=== PATIENT | male | born 1980 | race Caucasian/White ===

== ENCOUNTER 2018-08-26 08:45 | Emergency (ER) | payer OTHER ==
[~2018-08-26] VITALS: Ht 180.3 cm; Wt 61.2 kg
[2018-08-26] MEDS ORDERED: PENICILLIN V P500 MG PO (09:19)
[2018-08-26] MEDS ORDERED: IBUPROFEN600 MG PO (09:19)
--- OUTSIDE RECORDS SUMMARY | 2018-08-26 11:10 | XMS ---
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 Lucina VISIT COUNT (12 MO.) 2 QUEENIE Lennon TOTAL 2 NOTE: Visits indicate total known visits. ED/UCC VISIT TRACKING (12 MO.) 08/26/2018 09:12 [facility] [place] TYPE: Emergency COMPLAINT: - DENTAL PAIN 08/26/2018 08:46 [facility] [place] TYPE: Emergency COMPLAINT: - DENTAL PAIN/MSE TO CLINIC INPATIENT VISIT TRACKING (12 MO.) No inpatient visits to display in this time frame [id number]
== END 2018-08-26 09:05 | disposition home or self-care (01) ==
LOC: ED 08:45
DX: K08.89 Other specified disorders of teeth and supporting structures (principal)

== ENCOUNTER 2018-08-26 09:12 | Emergency (ER) | payer OTHER ==
[~2018-08-26] VITALS: Ht 180.3 cm; Wt 61.2 kg
--- OUTSIDE RECORDS SUMMARY | 2018-08-26 09:14 | XMS ---
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 Angela has no Care Guidelines for this patient. Lucina VISIT COUNT (12 MO.) [address] [facility] TOTAL 2 NOTE: Visits indicate total known visits. ED/[place] VISIT TRACKING (12 MO.) 08/26/2018 09:12 [facility] [place] TYPE: Emergency COMPLAINT: - DENTAL PAIN 08/26/2018 08:46 [facility] Dasil[facility] [place] TYPE: Emergency COMPLAINT: - DENTAL PAIN INPATIENT VISIT TRACKING (12 MO.) No inpatient visits to display in this time frame [id number]
[2018-08-26] MEDS ORDERED: IBUPROFEN600 MG PO (09:19)
[2018-08-26] MEDS ORDERED: PENICILLIN V P500 MG PO (09:19)
== END 2018-08-26 09:25 | disposition home or self-care (01) ==
LOC: ED 09:12
DX: K02.9 Dental caries, unspecified (principal); F17.200 Nicotine dependence, unspecified, uncomplicated
CPT/HCPCS: 99283

== ENCOUNTER 2019-09-25 15:54 | Emergency (ER) | payer OTHER ==
[~2019-09-25] VITALS: Ht 180.3 cm; Wt 61.2 kg
--- OUTSIDE RECORDS SUMMARY | ~2019-09-25 | XMS | Encounter Summary ---
Demographics + + + | Address | [address] | | | [place] [address] | + + + | Home Phone | | + + + | Preferred Language | Unknown | + + + | Marital Status | | + + + | Temple Affiliation | Unknown | + + + | Race | Unknown | + + + | Ethnic Group | Unknown | + + + Author + + + | Author | [facility] | | | and [place] | + + + | Organization | [facility] | | | and [place] | + + + | Address | Unknown | + + + | Phone | Unavailable | + + + Support + + +---------+ + | Name | Relationship | Address | Phone | + + +---------+ + | Lizbeth Parker | ECON | Unknown | | + + +---------+ + Care Team Providers + +------+ + | Care Recruitment Internship Name | Role | Phone | + +------+ + | Amanda Raman DO | PCP | | + +------+ + Reason for Visit + +--------+ + | Reason | Onset | Comments | | | Date | | + +--------+ + | Screening For | 08/01/ | | | Communicable Disease | 2020 | | + +--------+ + Encounter Details +--------+ + + + + | Date | Type | Department | Care Team | Description | +--------+ + + + + | 08/01/ | Telephone | [facility] | Amanda Raman, | Screening For | | 2019 | | [facility] | DO [address] | Communicable Disease | | | | MED[facility] [address] | [place] [address] | | | | | [address] [place], | [phone] | | | | | [place] [address] | | | | | | [phone] | | | +--------+ + + + + Social History + +-------+ +--------+------+ | Tobacco Use | Types | Packs/Day | Years | Date | | | | | Used | | + +-------+ +--------+------+ | Never Assessed | | | | | + +-------+ +--------+------+ + + + | Sex Assigned at | Date Recorded | | | | + + + | Not on file | | + + + documented as of this encounter Miscellaneous Notes Telephone Encounter - Destiny Perdomo - 08/02/2019 1:38 PM PDTCalled patient to confirm New Patient appt 08/03/[address] Raman. Pt states he feels like he has many of the COVI D 19 symptoms except a fever and has struggled with a sore throat for awhile. Pt was informed to wait in the car upon arrival and call to get checked in, and will be lewis luated in the car before coming inside. Please call patient if needed. Thanks Destiny Perdomo documented in this en counter Plan of Treatment Not on filedocumented as of this encounter Visit Diagnoses Not on filedocumented in this encounter"
--- OUTSIDE RECORDS SUMMARY | ~2019-09-25 | XMS | Encounter Summary ---
Demographics + + + | Address | [address] | | | [place] [address] | + + + | Home Phone | | + + + | Preferred Language | Unknown | + + + | Marital Status | | + + + | Yazidism Affiliation | Unknown | + + + | Race | Unknown | + + + | Ethnic Group | Unknown | + + + Author + + + | Author | [facility] | | | and [place] | + + + | Organization | [facility] | | | and [...] Team Providers + +------+ + | Care Editor Name | Role | Phone | + +------+ + | Amanda Raman DO | PCP | | + +------+ + Reason for Visit + +--------+ + | Reason | Onset | Comments | | | Date | | + +--------+ + | Medication Refill | 09/07/ | | | | 2020 | | + +--------+ + Encounter Details +--------+--------+ + + + | Date | Type | Department | Care Team | Description | +--------+--------+ + + + | 09/07/ | Refill | [facility] | Ace Ramana Levi, | Medication Refill | | 2020 | | [facility] | DO [address] | | | | | MEDICAL CLIN[address] | [place] [address] | | | | | [address] [place], | [phone] | | | | | [place] [address] | | | | | | [phone] | | | +--------+--------+ + + + Social History + +-------+ +--------+------+ | Tobacco Use | Types | Packs/Day | Years | Date | | | | | Used | | + +-------+ +--------+------+ | Current Every Day | | | | | | Smoker | | | | | + +-------+ +--------+------+ + +---+---+---+ | Smokeless Tobacco: | | | | | Never Used | | | | + +---+---+---+ + + | Comments: 5-10 a day | + + + + +---------+ + | Alcohol Use | Drinks/Week | oz/Week | Comments | + + +---------+ + | Not Currently | | | | + + +---------+ + + + + | Sex Assigned at | Date Recorded | | | | + + + | Not on file | | + + + documented as of this encounter Miscellaneous Notes Telephone Encounter - Pari Gongora [facility] - 09/08/2019 1:35 PM PDTFormatting of thi s note might be different from the original. Requested Prescriptions Pending Prescriptions Disp Refills amphetamine-dextroamphetamine (ADDERALL) 5 mg tablet 30 tablet 0 Sig: Take 1 tablet (5 mg total) by mouth Daily Patient was last seen on Recent Visits 08/03/2019 Attention deficit hyperactivity disorder (ADHD), combined type [facility] Amanda Raman DO Office Visit . Outpatient Morphine Equivalent Daily Dose (MEDD) None Lab Results Component Value Date METHAMPHQUAL Negative 08/03/2019 CANNIBSCR Positive (A) 08/03/2019 METHADSCR Negative 08/03/2019 OPIATESCR Negative 08/03/2019 BARBITURATE Negative 08/03/2019 AMPHEQUAL Negative 08/03/2019 OXYCODONEUR Negative 08/03/2019 PROPOX Negative 08/03/2019 JOSESITO Hutton CMA elephone Cassandra Handley 09/08/2019 9:34 AM PDTPt refill request: amphetamine-dextroamphetamine (ADDERALL) 5 mg tablet [facility] ThanksCassandra documented in t his encounter Plan of Treatment Not on filedocumented as of this encounter Visit Diagnoses Not on filedocumented in this encounter"
--- OUTSIDE RECORDS SUMMARY | ~2019-09-25 | XMS | Encounter Summary ---
Demographics + + + | Address | [address] | | | [place] [address] | + + + | Home Phone | | + + + | Preferred Language | Unknown | + + + | Marital Status | | + + + | Pentecostalism Affiliation | Unknown | + + + | Race | Unknown | + + + | Ethnic Group | Unknown | + + + Author + + + | Author | [facility] | | | and [place] | + + + | Organization | [facility] | | [...] Team Providers + +------+ + | Care Metal Sprayer Name | Role | Phone | + +------+ + | Amanda Raman DO | PCP | | + +------+ + Reason for Visit + +--------+ + | Reason | Onset | Comments | | | Date | | + +--------+ + | Lab Results | 08/03/ | | | | 2020 | | + +--------+ + Encounter Details +--------+ + + + + | Date | Type | Department | Care Team | Description | +--------+ + + + + | 08/03/ | Telephone | [facility] | Amanda Raman, | Lab Results | | 2019 | | [facility] | DO [address] | | | | | MEDICAL CLIN[address] | [place] [address] | | | | | [address] [place], | [phone] | | | | | [place] [address] | | | | | | [phone] | | | +--------+ + + + [...] this encounter Miscellaneous Notes Telephone Encounter - Karen Jarrell LPN - 08/04/2019 5:24 PM PDTPatient informed, he s tates he would like to know what his HDL was, no Lipid panel was ordered. Per patient reques t I ordered a lipid for patient to have cholesterol and HDL tested. Vidal Curtisectronically signed by Karen Jarrell LPN at 08/04/2019 5:25 PM P DTTelephone Encounter - Karen Jarrell LPN - 08/04/2019 5:15 PM PDT----- Message from Valencia DO sent at 08/03/2019 3:54 PM PDT ----- UA with no infection but does show some dehydration, continue the cranberry juice and water intake. Drug screen as expected. Labs normal, good renal and liver function. Normal calciu m and protein levels. Tdocumented in this encounter Plan of Treatment Not on filedocumented as of this encounter Results Lipid Panel (08/03/2019 10:48 AM PDT) + + + + + + | Component | Value | Ref Range | Performed | Pathologist | | | | | At | Signature | + + + + + + | Triglycerid | 191 | 30 - 200 mg/dL | [facility] | | | es | | | [facility] | | | | | [facility] | | | | | | [facility] | | | | | | [facility] | | + + + + + + | Cholesterol | 236 (H) | 0 - 200 mg/dL | [facility] | | | | | | [facility] | | | | | | [facility] | | | | | | [facility] | | | | | | [facility] | | + + + + + + | HDL | 33 (L) | >=40 mg/dL | [facility] | | | | | | [facility] | | | | | | [facility] | | | | | | [facility] | | | | | | [facility] | | + + + + + + | Chol/HDL | 7.2 (H) | <=5.0 | [facility] | | | Ratio | | | [facility] | | | | | | [facility] | | | | | | [facility] | | | | | | [facility] | | + + + + + + | LDL, | 165 (H)Comment: LDL | <130 mg/dL | [facility] | | | Calculated | reference range: | | [facility] | | | | < 100 mg/dL | | [facility] | | | | [id number] - 129 mg/dL | | [facility] | | | | Near [id number] - | | MEDICAL | | | | 159 mg/dL | | CENTER LAB | | | | [id number] - 189 | | | | | | mg/dL High | | | | | | > 190 mg/dL Very | | | | | | High | | | | + + + + + + + + | Specimen | + + | Blood | + + + + + + + | Performing | Address | City/State/Zipcode | Phone Number | | Organization | | | | + + + + + | [facility] | [address] | [place], [place] | [phone] | | [facility] | | [address] | | | [facility] | | | | + + + + + documented in this encounter Visit Diagnoses + + | Diagnosis | + + | Hyperlipidemia, unspecified hyperlipidemia type - Primary | + + documented in this encounter"
--- OUTSIDE RECORDS SUMMARY | ~2019-09-25 | XMS | Encounter Summary ---
Demographics + + + | Address | [address] | | | [place] [address] | + + + | Home Phone | | + + + | Preferred Language | Unknown | + + + | Marital Status | | + + + | Sabianism Affiliation | Unknown | + + + | Race | Unknown | + + + | Ethnic Group | Unknown | + + + Author + + + | Author | [facility] | | | and [place] | + + + | Organization | [facility] | | | and [place] | + + + | Address | Unknown | + + + | Phone | Unavailable | + + + Support + + +---------+ + | Name | Relationship | Address | Phone | + + +---------+ + | Lizbeth Crane | ECON | Unknown | | + + +---------+ + Care Team Providers + +------+ + | Care Cane Cutter Name | Role | Phone | + +------+ + | Amanda Raman DO | PCP | | + +------+ + Reason for Visit +--------+ + | Reason | Comments | +--------+ + | Other | tirage | +--------+ + Encounter Details +--------+ + + + + | Date | Type | Department | Care Team | Description | +--------+ + + + + | 09/24/ | Clinical | [facility] | Amanda Raman, | | | 2020 | Support | [facility] | [address] | | | | | MEDICAL CLIN[address] | [place] [address] | | | | | [address] [place], | [phone] | | | | | [place] [address] | | | | | | [phone] | | | +--------+ + + + [...] + + documented as of this encounter Progress Karen Antoine LPN - 09/25/2019 11:20 AM PDTPatient states that he has had a fever, chil ls, cough starting today, SOB, and dizziness. Per Dr. Raman patient was advised to go to the ER to be seen and evaluated. Patient stated that was the first place he wanted to go, but states his friend had made him come to the clinic. Patient was assisted to the car by his friend, and states he will go to the ER. Karen Jarrell LPN documented in this encounter Plan of Treatment + +------+--------+ + + | Name | Type | Priori | Associated Diagnoses | Date/Time | | | | ty | | | + +------+--------+ + + | ED INFORMATION | ALIZA | Routin | | 09/25/2019 10:57 AM | | EXCHANGE | | e | | PDT | + +------+--------+ + + documented as of this encounter Procedures + +--------+ + + + | Procedure Name | Priori | Date/Time | Associated Diagnosis | Comments | | | ty | | | | + +--------+ + + + | ED INFORMATION | Routin | 09/25/2019 | | | | EXCHANGE | e | 10:57 AM | | | | | | PDT | | | + +--------+ + + + +---+--------+ | | | | | Proced | | | ure | | | Note - | | | Claude, | | | Lab In | | | | | | Hlseve | | | n - | | | 09/24/ | | | 2020 | | | 10:58 | | | AM PDT | | | | | | Format | | | ting | | | of | | | this | | | note | | | might | | | be | | | differ | | | ent | | | from | | | the | | | origin | | | al.COL | | | LECTIV | | | E?NOTI | | | FICATI | | | ON?07/ | | | | | | 0 | | | 10:56? | | | CRANE, | | | | | | ARNOLDO? | | | MRN: | | | [id number] | | | [id number] | | | riteri | | | a Met | | | Has | | | Care | | | Guidel | | | inesSe | | | curity | | | and | | | Safety | | | No | | | recent | | | | | | Securi | | | ty | | | Events | | | | | | curren | | | tly on | | | | | | fileED | | | Care | | | Guidel | | | inesTh | | | ere | | | are | | | curren | | | tly no | | | ED | | | Care | | | Guidel | | | katheryn | | | for | | | this | | | patien | | | t. | | | Please | | | check | | | your | | | facili | | | ty's | | | medica | | | l | | | record | | | s | | | system | | | .Care | | | Histor | | | yMedic | | | al/Umer | | | [email or web address] | | | /03/05 | | | 12:00 | | | AM | | | [facility] | | | [facility] | | | al | | | PATIEN | | | T DOES | | | HAVE | | | A PCP- | | | DR | | | KAHLIL | | | L | | | JARREL | | | L AT | | | PENDLE | | | TON | | | PRIMAR | | | Y | | | CLINIC | | | . | | | PLEASE | | | REFER | | | | | | PATIEN | | | T TO | | | DENTIS | | | T DR | | | NIRMAL | | | BUNCH | | | [phone] | | | FOR | | | ANY | | | DENTAL | | | | | | CONCER | | | NS/NAPOLEON | | | N.Flag | | | s | | | [facility] | | | ED | | | Dispar | | | ity | | | Measur | | | e - | | | [facility] | | | has | | | develo | | | ped a | | | flag | | | ([place] | | | n ED | | | Dispar | | | ity | | | Measur | | | e) to | | | help | | | suppor | | | t | | | Medica | | | id | | | member | | | s with | | | | | | mental | | | | | | illnes | | | s. | | | [facility] | | | | | | [facility] | | | | | | Author | | | ity | | | uses | | | claims | | | data | | | with a | | | | | | 36-mon | | | th | | | vito | | | g look | | | back | | | period | | | to | | | identi | | | fy | | | member | | | s who | | | have | | | had | | | two or | | | more | | | diagno | | | ses of | | | | | | mental | | | | | | illnes | | | s | | | (does | | | not | | | need | | | to be | | | primar | | | y) in | | | any | | | settin | | | g | | | (e.g. | | | ED, | | | Inpati | | | ent, | | | primar | | | y | | | care). | | | | | | Flagge | | | d | | | member | | | s are | | | includ | | | ed in | | | the ED | | | | | | Dispar | | | ity | | | Measur | | | e | | | denomi | | | nator | | | popula | | | tion. | | | Flags | | | are | | | update | | | d | | | weekly | | | . / | | | Attrib | | | uted | | | By: | | | [facility] | | | | | | [facility] | | | | | | Author | | | ity | | | (OHA) | | | / | | | Attrib | | | uted | | | On: | | | 02/05/ | | | 2020 | | | E.D. | | | Visit | | | Count | | | (12 | | | mo.)No | | | | | | emerge | | | ncy | | | depart | | | ment | | | visits | | | in | | | the | | | last | | | year. | | | Recent | | | | | | Emerge | | | ncy | | | Depart | | | ment | | | Visit | | | [place] | | | yDate | | | Facili | | | ty | | | City | | | State | | | Type | | | Diagno | | | ses or | | | Chief | | | | | | Compla | | | int | | | Rob | | | 10, | | | 2020 | | | [place] | | | [facility] | | | Urgent | | | Care | | | May | | | 18, | | | 2020 | | | [place] | | | [place] | [place] | [place] | | | Urgent | | | Care | | | | | | Other | | | specif | | | ied | | | behavi | | | oral | | | and | | | emotio | | | nal | | | disord | | | ers | | | with | | | onset | | | | | | Hyperl | | | ipidem | | | ia, | | | unspec | | | ified | | | | | | Tobacc | | | o use | | | | | | Encoun | | | ter | | | for | | | genera | | | l | | | adult | | | medica | | | l | | | examin | | | ation | | | withou | | | t | | | abnor | | | | | | Dysuri | | | a | | | Other | | | long | | | term | | | (curre | | | nt) | | | drug | | | therap | | | y | | | Chroni | | | c | | | pharyn | | | gitis | | | | | | Deviat | | | ed | | | nasal | | | septum | | | | | | Attent | | | ion-de | | | ficit | | | hypera | | | ctivit | | | y | | | disord | | | er, | | | combin | | | ed | | | type | | | Recent | | | | | | Inpati | | | ent | | | Visit | | | [facility] | | | yNo | | | record | | | ed | | | inpati | | | ent | | | visits | | | . Care | | | | | | TeamPr | | | ovider | | | | | | Specia | | | lty | | | Phone | | | Fax | | | Servic | | | e | | | Dates | | | GAXIOLA, | | | ARIES | | | , PA | | | Physic | | | damion | | | Assist | | | ant | | | (541) | | | 383-30 | | | 05 | | | (541) | | | 383-18 | | | 83 | | | Curren | | | t | | | JARREL | | | L, | | | KAHLIL | | | , PA-C | | | | | | Physic | | | damion | | | Assist | | | ant | | | (541) | | | 567-11 | | | 37 | | | (541) | | | 567-23 | | | 36 Cuong | | | 12, | | | 2019 - | | | | | | Curren | | | t | | | REIHER | | | , | | | EFREN | | | , MD | | | Family | | | | | | Medici | | | ne | | | (541) | | | 383-30 | | | 05 | | | Curren | | | t | | | ARIES | | | GAXIOLA | | | Primar | | | y Care | | | (541) | | | | | | 383-30 | | | 05 | | | (541) | | | 383-18 | | | 83 | | | Curren | | | t | | | GAXIOLA, | | | ARIES | | | W | | | Primar | | | y Care | | | | | | (541) | | | 383-18 | | | 83 | | | Curren | | | t | | | Collec | | | tive | | | Portal | | | This | | | patien | | | t has | | | regist | | | ered | | | at the | | | | | | [facility] | | | [facility] | | | | | [facility] | | | al | | | Emerge | | | ncy | | | Depart | | | ment | | | For | | | more | | | inform | | | ation | | | visit: | | | | | | https: | | | //secu | | | re.col | | | lectiv | | | emedic | | | al.com | | | /notif | | | [email or web address] | | | 8de7-0 | | | [email or web address] | | | 36-ab3 | | | d-[email or web address] | | | [id number] | | | 02 | | | PLEASE | | | NOTE: | | | 1. | | | Any | | | care | | | recomm | | | endati | | | ons | | | and | | | other | | | clinic | | | al | | | inform | | | ation | | | are | | | provid | | | ed as | | | guidel | | | katheryn | | | or for | | | | | | histor | | | ical | | | purpos | | | es | | | only, | | | and | | | provid | | | ers | | | should | | | | | | exerci | | | se | | | their | | | own | | | clinic | | | al | | | judgme | | | nt | | | when | | | provid | | | ing | | | care. | | | 2. | | | You | | | may | | | only | | | use | | | this | | | inform | | | ation | | | for | | | purpos | | | es of | | | treatm | | | ent, | | | paymen | | | t or | | | health | | | care | | | operat | | | ions | | | activi | | | ties, | | | and | | | subjec | | | t to | | | the | | | limita | | | tions | | | of | | | applic | | | able | | | Collec | | | tive | | | Polici | | | es. | | | 3. | | | You | | | should | | | | | | consul | | | t | | | direct | | | ly | | | with | | | the | | | organi | | | zation | | | that | | | provid | | | ed a | | | care | | | guidel | | | ine or | | | other | | | | | | clinic | | | al | | | histor | | | y with | | | any | | | questi | | | ons | | | about | | | additi | | | onal | | | inform | | | ation | | | or | | | accura | | | cy or | | | comple | | | teness | | | of | | | inform | | | ation | | | provid | | | ed.? | | | 2020 | | | Collec | | | tive | | | Medica | | | l | | | Techno | | | logies | | | , Inc. | | | - | | | [email or web address] | | | llecti | | | vemedi | | | [email or web address] | | | m | +---+--------+ documented in this encounter Visit Diagnoses Not on filedocumented in this encounter"
--- OUTSIDE RECORDS SUMMARY | ~2019-09-25 | XMS | Encounter Summary ---
Demographics + + + | Address | [address] | | | [place] [address] | + + + | Home Phone | | + + + | Preferred Language | Unknown | + + + | Marital Status | | + + + | Presybeterian Affiliation | Unknown | + + + | Race | Unknown | + + + | Ethnic Group | Unknown | + + + Author + + + | Author | [facility] | | | and [place] | + + + | Organization | [facility] | | | and [...] Team Providers + +------+ + | Care Repulping Supervisor Name | Role | Phone | + +------+ + | Amanda Raman DO | PCP | | + +------+ + Reason for Visit + +--------+ + | Reason | Onset | Comments | | | Date | | + +--------+ + | Lab Results | 08/05/ | | | | 2020 | | + +--------+ + Encounter Details +--------+ + + + + | Date | Type | Department | Care Team | Description | +--------+ + + + + | 08/05/ | Telephone | [facility] | Amanda Raman, | Lab Results | | 2019 | | [facility] | DO [address] | | | | | [facility] [address] | [place] [address] | | | | [address] [place], | [phone] | | | | | [place] [address] | | | | | | [phone] | | | +--------+ + + + [...] this encounter Miscellaneous Notes Telephone Encounter - Faith Mccracken CC CMA - 08/07/2019 8:21 AM PDTPatient informed. P t verbalized understanding and had no further questions. I encouraged callback with question s or further concerns. JOSESITO Mcgowan CMA elephone Karen Dejesus LPN - 08/06/2019 5:38 PM PDTFormatting of this note might be differ ent from the original. Amanda A Lamine, DO You 14 minutes ago (5:23 PM) Since this is a new issue just the past 2 weeks continue the cranberry juice and plenty of water and monitor. If no pain with urination and no fever, abd pain etc I think we are saf e to watch for a couple more weeks to see if resolves. If does not then see me for further F U Tried calling patient, line was busy. Karen Jarrell LPN elephone Encounter - Karen Jarrell LPN - 08/06/2019 2:57 PM PDTPatient informed, he states he will work o n the diet. He states he knows that the UA came back negative, and is wondering what can help with his frequent urination, as he is still having that issue. Karen Jarrell LPN elephone Encounter - Karen Jarrell LPN - 08/06/2019 2:54 PM PDT----- Message from Amanda Raman DO sent at 08/05/2019 7:29 AM PDT ----- The lab ran a lipid panel on the blood they had. Not sure this was fasting though. However does show elevated cholesterol total 236 with the bad cholesterol LDL up to 165. We could s tart medication for this or he can work on low fat low cholesterol diet with increased exerc ise and increase in fiber in diet.Electronically signed by Karen Jarrell LPN at 0 2:54 PM PDTdocumented in this encounter Plan of Treatment Not on filedocumented as of this encounter Visit Diagnoses Not on filedocumented in this encounter"
--- OUTSIDE RECORDS SUMMARY | ~2019-09-25 | XMS | Encounter Summary ---
Demographics + + + | Address | [address] | | | [place] [address] | + + + | Home Phone | | + + + | Preferred Language | Unknown | + + + | Marital Status | | + + + | Latter Day Affiliation | Unknown | + + + | Race | Unknown | + + + | Ethnic Group | Unknown | + + + Author + + + | Author | [facility] | | | and [place] | + + + | Organization | [facility] | | | and [...] Team Providers + +------+ + | Care Slide Forming Machine Tender Name | Role | Phone | + +------+ + | Amanda Raman DO | PCP | | + +------+ + Reason for Referral Evaluate & Treat (Routine) + + + + + + + | Status | Reason | Specialty | Diagnoses / | Referred By | Referred To | | | | | Procedures | Contact | Contact | + + + + + + + | Authorized | Specialty | Otolaryngolog | Diagnoses | Lamine | [facility] | | | Services | y | Chronic | Amanda Sims DO | [address] | | | Required | | pharyngitis | [address] | [address] | | | | | Deviated | [place], | [place] | | | | | nasal septum | [place] [address] | [place], [place] | | | | | Tobacco | Phone: | [phone] | | | | | use | [phone] | Phone: | | | | | Procedures | Fax: | [phone] | | | | | [place] | [phone] | Fax: | | | | | | | [phone] | + + + + + + + Reason for Visit + + + | Reason | Comments | + + + | Establish Care | | + + + Encounter Details +--------+---------+ + + + | Date | Type | Department | Care Team | Description | +--------+---------+ + + + | 08/02/ | Office | [facility] | Amanda Raman, | Attention deficit | | 2020 | Visit | [facility] | DO [address] [place] | hyperactivity | | | | [facility] [address] | [place] [address] | disorder (ADHD), | | | | [address] [place], | [phone] | combined type | | | | [place] [address] | | (Primary Dx); | | | | [phone] | | Tobacco abuse; | | | | | | Chronic sore throat; | | | | | | Dysuria; High risk | | | | | | medication use; | | | | | | Periodic health | | | | | | assessment, general | | | | | | screening, adult; | | | | | | Hyperlipidemia, | | | | | | unspecified | | | | | | hyperlipidemia type; | | | | | | Acquired deviated | | | | | | nasal septum | +--------+---------+ + + + Social History + +-------+ [...] + + documented as of this encounter Last Filed Vital Signs + + + + + | Vital Sign | Reading | Time Taken | Comments | + + + + + | Blood Pressure | 120/70 | 08/03/2019 10:10 AM | | | | | PDT | | + + + + + | Pulse | 96 | 08/03/2019 10:10 AM | | | | | PDT | | + + + + + | Temperature | - | - | | + + + + + | Respiratory Rate | 16 | 08/03/2019 10:10 AM | | | | | PDT | | + + + + + | Oxygen Saturation | 97% | 08/03/2019 10:10 AM | | | | | PDT | | + + + + + | Inhaled Oxygen | - | - | | | Concentration | | | | + + + + + | Weight | 59.4 kg (131 lb) | 08/03/2019 10:10 AM | | | | | PDT | | + + + + + | Height | 179.1 cm (5' 10.5") | 08/03/2019 10:10 AM | | | | | PDT | | + + + + + | Body Mass Index | 18.53 | 08/03/2019 10:10 AM | | | | | PDT | | + + + + + documented in this encounter Progress Notes Amanda Raman, - 08/03/2019 10:00 AM PDTFormatting of this note might be different fro m the original. Subjective: Patient ID: Arnoldo Crane is a 39 y.o. male. Here to establish care. Has ADHD mixed type and uses low dose Adderall with benefit. No ill SE. No sleep or weight loss issues. He also uses some marijuana. He smokes and is working o n quitting and is down to 5 cigs a day. He has had this chronic sore throat for 8 months wit h no fever or cough. States is all day, worse in the evening. Denies Allergies. Does have a deviated septum from breaking nose in college. Denies YOLANDA. No ear pain. Denies dysphagia. A grees to see ENT and keep working on stop smoking. He has had new issue dysuria for the past few weeks and urine is cloudy. Started drinking some cranberry juice that he states has hel ped. He has some mildly elevated HLD on review of labs from medical records, prior PCP in [facility] and we will plan to recheck that in the Fall. Encouraged healthy diet. VS normal. Review of Systems As above Past Medical History: Diagnosis Date Depression Kidney stones at age 10 Past Surgical History: Procedure Laterality Date OTHER SURGICAL HISTORY Ankle surgery pin placed. Family History Problem Relation Age of Onset Kidney cancer Mother Depression Mother Depression Sister Depression Brother Depression Maternal Aunt Depression Maternal Uncle Objective: BP 120/70 | Pulse 96 | Resp 16 | Ht 1.791 m (5' 10.5") | Wt 59.4 kg (131 lb) | SpO2 97 % | BMI 18.53 kg/m Physical Exam Constitutional: General: He is not in acute distress. Appearance: Normal appearance. HENT: Head: Normocephalic and atraumatic. Right Ear: Tympanic membrane and ear canal normal. Left Ear: Tympanic membrane and ear canal normal. Nose: Comments: Septum deviated to the right Mouth/Throat: Mouth: Mucous membranes are moist. Pharynx: Oropharynx is clear. No oropharyngeal exudate or posterior oropharyngeal erythe ma. Eyes: Extraocular Movements: Extraocular movements intact. Conjunctiva/sclera: Conjunctivae normal. Pupils: Pupils are equal, round, and reactive to light. Neck: Musculoskeletal: Normal range of motion. No muscular tenderness. Comments: No thyroid enlargement or nodules Cardiovascular: Rate and Rhythm: Normal rate and regular rhythm. Heart sounds: No murmur. Pulmonary: Effort: Pulmonary effort is normal. No respiratory distress. Breath sounds: Normal breath sounds. Abdominal: Tenderness: There is no abdominal tenderness. Musculoskeletal: Right lower leg: No edema. Left lower leg: No edema. Lymphadenopathy: Cervical: No cervical adenopathy. Skin: General: Skin is warm and dry. Capillary Refill: Capillary refill takes less than 2 seconds. Neurological: General: No focal deficit present. Mental Status: He is alert and oriented to person, place, and time. Cranial Nerves: No cranial nerve deficit. Gait: Gait normal. Psychiatric: Mood and Affect: Mood normal. Behavior: Behavior normal. Thought Content: Thought content normal. Judgment: Judgment normal. Assessment: 1. Attention deficit hyperactivity disorder (ADHD), combined type 2. Tobacco abuse * [facility] - AMB Referral 3. Chronic sore throat CBC with Differential * [facility] - AMB Referral 4. Dysuria Urinalysis with Microscopic with Culture if Indicated 5. High risk medication use Comprehensive Metabolic Panel Drugs of Abuse, Screen, Urine 6. Periodic health assessment, general screening, adult CBC with Differential Comprehensive Metabolic Panel 7. Hyperlipidemia, unspecified hyperlipidemia type 8. Acquired deviated nasal septum * [facility] - AMB Referral Plan: Refill Adderall for continued use. We will drug screen today and FU every 3-4 months for SE . Encouraged stop smoking and he is working on it. Referral to Dr Breanne CALVO for the sore thr oat for 8 months is of concern with the smoking history. UA for UTI today. CMP and CBC and w e will get a lipid panel next fall for FU . Follow heart healthy diet. documented in this en counter Plan of Treatment + +------+--------+ + + | Name | Type | Priori | Associated Diagnoses | Date/Time | | | | ty | | | + +------+--------+ + + | ED INFORMATION | ALIZA | Routin | | 08/03/2019 9:58 AM | | EXCHANGE | | e | | PDT | + +------+--------+ + + + + +--------+ + + | Name | Type | Priori | Associated Diagnoses | Order Schedule | | | | ty | | | + + +--------+ + + | * [facility] | Outpatient | Routin | Tobacco abuse | 1 Occurrences | | [facility] - AMB | Referral | e | Chronic sore throat | starting 08/03/2019 | | Referral | | | Acquired deviated | until 08/02/2020 | | | | | nasal septum | | + + +--------+ + + documented as of this encounter Procedures + +--------+ + + + | Procedure Name | Priori | Date/Time | Associated Diagnosis | Comments | | | ty | | | | + +--------+ + + + | URINALYSIS WITH | Routin | 08/03/2019 | Dysuria | Results for this | | MICROSCOPIC WITH | e | 10:54 AM | | procedure are in the | | CULTURE IF INDICATED | | PDT | | results section. | + +--------+ + + + | ED INFORMATION | Routin | 08/03/2019 | | | | EXCHANGE | e | 9:58 AM | | | | | | PDT | | | + +--------+ + + + +---+--------+ | | | | | Proced | | | ure | | | Note - | | | Claude, | | | Lab In | | | | | | Hlseve | | | n - | | | /18/ | | | 2020 | | | 9:59 | | | AM PDT | | [...] | | | FICATI | | | ON?05/ | | | 18/ | | | 0 | | | 09:57? | | | CRANE, | | | | | | ARNOLDO? | | | MRN: | | | [id number] | | | [id number] | | | riteri | | | [...] | | | [id number] | | | /12/19 | | | 12:00 | | | AM | | | [facility] | | y | | | [...] | | | s | | | [facility] | | | ED | | | Dispar | | | ity | | | Measur | | | e - | | | [facility] | | | has | | | [...] | | | s. | | | [facility] | | | | | | Health [...] | | | By: | | | [facility] | | | | | | Health [...] | | | (12 | | | mo.)Fa | | | cility | | | | | | Visits | | | [facility] | | | [facility] | | | al 2 | | | Total | | | 2 | | | Note: | | | Visits | | | | | | indica | | | te | | | total | | | known | | | visits | | | . | | | Recent | | | [...] | | | int | | | May | | | [...] | | o use | | | [facility] | | | 11, | | | 2019 | | | [facility] | | [facility] | | | [place] | | | [place] | | | Emerge | | | ncy | | | | | | Nicoti | | | ne | | | depend | | | ence, | | | unspec | | | ified, | | | | | | uncomp | | | licate | | | d | | | Dental | | | | | | caries | | | , | | | unspec | | | ified | | | | | | Other | | | specif | | | ied | | | disord | | | ers of | | | teeth | | | and | | | suppor | | | ting | | | struct | | | ures | | | [facility] | | | 11, | | | 2019 | | | [facility] | | | [facility] | [place] | [place] | | | [place] | | | Emerge | | | ncy | | | Other | | | | | | specif | | | ied | | | disord | | | ers of | | | teeth | | | and | | | suppor | | | ting | | | struct | | | ures | | | Recent | | | [...] | | | (541) | | | [phone] | | | 37 | | | [...] | | | /notif | | | y/be65 | | | 2ed7-0 | | | a3f-41 | | | 92-bfc | | | c-[id number] | | | cf84dd | | | 4f | | | PLEASE | | | [...] | | | ed.? | | | 2019 | | | [employer] | | | tive | | | Medica | | | l | | | [employer] | | | logies | | | , Inc[employer] | | | - | | | [email or web address] | | | llecti | | | vemedi | | | [email or web address] | | | m | +---+--------+ documented in this encounter Results Drugs of Abuse, Screen, Urine (08/03/2019 10:54 AM PDT) + + + + + + | Component | Value | Ref Range | Performed | Pathologist | | | | | At | Signature | + + + + + + | Cannabinoid | Positive (A) | Negative | [facility] | | | s Screen, | | | [facility] | | | Urine | | | [facility] | | | | | [facility] | | | | | [facility] | | | | | | [facility] | | + + + + + + | Cocaine | Negative | Negative | [place] | | | Screen, | | | [facility] | | | Urine | | | [facility] | | | | | | [facility] | | | | | | [facility] | | | | | | [facility] | | + + + + + + | Phencyclidi | Negative | Negative | [place] | | | ne Screen, | | | [facility] | | | Urine | | | [facility] | | | | | | [facility] | | | | | | [facility] | | | | | | [facility]ENTER [facility] | | + + + + + + | Methampheta | Negative | Negative | [place] | | | mine | | | [facility] | | | Screen, | | | [facility] | | | Urine | | | [facility] | | | | | | [facility] | | | | | | CENTER LAB | | + + + + + + | Opiates | Negative | Negative | [place] | | | Screen, | | | [facility] | | | Urine | | | [facility] | | | | | | [facility] | | | | | | [facility] | | | | | | [facility]ENTER [facility] | | + + + + + + | Amphetamine | Negative | Negative | [place] | | | Screen, | | | [facility] | | | Urine | | | [facility] | | | | | | [facility] | | | | | | [facility] | | | | | | [facility]ENTER [facility] | | + + + + + + | Benzodiazep | Negative | Negative | [place] | | | katheryn | | | [facility] | | | Screen, | | | [facility] | | | Urine | | | [facility] | | | | | | MED[facility] | | | | | | CENTER LAB | | + + + + + + | Tricyclic | Negative | Negative | [place] | | | Antidepress | | | [facility] | | | ants | | | [facility] | | | Screen, | | | [facility] | | | Urine | | | MEDICAL | | | | | | CENTER LAB | | + + + + + + | Methadone | Negative | Negative | [place] | | | Screen, | | | [facility] | | | Urine | | | [facility] | | | | | | [facility] | | | | | | [facility] | | | | | | [facility]ENTER LAB | | + + + + + + | Barbiturate | Negative | Negative | [place] | | | s Screen, | | | [facility] | | | Urine | | | [facility] | | | | | | [facility] | | | | | | [facility] | | | | | | [facility] | | + + + + + + | Oxycodone | Negative | Negative | [place] | | | Screen, | | | [facility] | | | Urine | | | [facility] | | | | | | [facility] | | | | | | [facility] | | | | | | [facility] | | + + + + + + | Propoxyphen | Negative | Negative | [facility] | | | e Screen, | | | [facility] | | | Urine | | | [facility] | | | | | | [facility] | | | | | | [facility] | | | | | | [facility] | | + + + + + + | Buprenorphi | Negative | Negative | [place] | | | ne Screen, | | | [facility] | | | Urine | | | [facility] | | | | | | [facility] | | | | | | [facility] | | | | | | [facility]ENTER [facility] | | + + + + + + + + | Specimen | + + | Urine | + + + + + | Narrative | Performed At | + + + | Qualitative drug screen intended for emergency medical use only. Not | [facility] | | intended for legal purposes. Chain of Custody not maintained. | HOSPITAL | | Confirmation of Positive results must be ordered by the attending | [facility] | | physician. Qhll-wwv-[id number] drugs may cross react with some methods. | [facility] | | Call the laboratory if further information is needed. | LAB | | AMPHETAMINE 500 ng/mL BARBITURATES | | | 200 ng/mL BENZODIAZEPINES | | | 150 ng/mL BUPRENORPHINE 10 ng/mL COCAINE | | | 150 ng/mL METHAMPHETAMINES | | | 500 ng/mL METHADONE | | | 200 ng/mL OPIATES 100 ng/mL | | | OXYCODONE 100 ng/mL PHENCYCLIDINE | | | 25 ng/mL PROPOXYPHENE | | | 300 ng/mL CANNABINOIDS 50 ng/mL | | | TRICYCLIC ANTIDEPRES 300 ng/mL | | + + + + + + + + | Performing | Address | City/State/Zipcode | Phone Number | | Organization | | | | + + + + + | [facility] | [address] | [place], [place] | [phone] | | [facility] | | [address] | | | [facility] | | | | + + + + + Urinalysis with Microscopic with Culture if Indicated (08/03/2019 10:54 AM PDT) + + + + + + | Component | Value | Ref Range | Performed | Pathologist | | | | | At | Signature | + + + + + + | Color, | Yellow | Pale Yellow, | [place] | | | Urine | | Yellow | [facility] | | | | | | [facility] | | | | | | [facility] | | | | | | [facility] | | | | | | [facility] | | + + + + + + | Clarity, | Clear | Clear | [place] | | | Urine | | | [facility] | | | | | | [facility] | | | | | | [facility] | | | | | | [facility] | | | | | | [facility] | | + + + + + + | pH, Urine | 7.0 | 5.0 - 7.0 | [place] | | | | | | [facility] | | | | | | [facility] | | | | | | [facility] | | | | | | [facility] | | | | | | [facility] | | + + + + + + | Specific | 1.015 | 1.003 - 1.030 | [facility] | | | [place], | | | [facility] | | | Urine | | | [facility] | | | | | | [facility] | | | | | | [facility] | | | | | | [facility] | | + + + + + + | Protein, | 30 mg/dL (A) | Negative | [facility] | | | Urine | | | [facility] | | | | | | [facility] | | | | | | [facility] | | | | | | [facility] | | | | | | [facility] | | + + + + + + | Blood, | Negative | Negative | [place] | | | Urine | | | [facility] | | | | | | [facility] | | | | | | [facility] | | | | | | [facility] | | | | | | [facility] | | + + + + + + | Glucose, | Normal | Normal | [facility] | | | Urine | | | [facility] | | | | | | [facility] | | | | | | [facility] | | | | | | [facility] | | | | | | [facility] | | + + + + + + | Ketones, | 5 mg/dL (A) | Negative | [facility] | | | Urine | | | [facility] | | | | | | [facility] | | | | | | [facility] | | | | | | [facility] | | | | | | [facility] | | + + + + + + | Bilirubin, | Negative | Negative | [facility] | | | Urine | | | [facility] | | | | | | [facility] | | | | | | [facility] | | | | | | [facility] | | | | | | [facility] | | + + + + + + | Nitrite, | Negative | Negative | [facility] | | | Urine | | | [facility] | | | | | | [facility] | | | | | | [facility] | | | | | | [facility] | | | | | | [facility] | | + + + + + + | Leukocyte | 25 lalo/uL (A) | Negative | [facility] | | | Esterase, | | | [facility] | | | Urine | | | [facility] | | | | | | [facility] | | | | | | [facility] | | | | | | [facility] | | + + + + + + | Urobilinoge | 1 mg/dL | 0-1.0 mg/dL | [facility] | | | n, Urine | | | [facility] | | | | | | [facility] | | | | | | [facility] | | | | | | [facility] | | | | | | [facility] | | + + + + + + | White Blood | 0-2 | <=5 /HPF | [facility] | | | Cells, | | | [facility] | | | Urine | | | [facility] | | | | | | [facility] | | | | | | [facility] | | | | | | [facility] | | + + + + + + | Red Blood | 0-2 | <=5 /HPF | [facility] | | | Cells, | | | [facility] | | | Urine | | | [facility] | | | | | | [facility] | | | | | | [facility] | | | | | | [facility] | | + + + + + + | Squamous | Trace (A) | None Seen /LPF | [facility] | | | Epithelial | | | [facility] | | | Cells, | | | [facility] | | | Urine | | | [facility] | | | | | | [facility] | | | | | | [facility] | | + + + + + + | Bacteria, | None Seen | None Seen /HPF | [facility] | | | Urine | | | [facility] | | | | | | [facility] | | | | | | [facility] | | | | | | [facility] | | | | | | [facility] | | + + + + + + | Mucus, | Rare (A) | None seen /LPF | [facility] | | | Urine | | | [facility] | | | | | | [facility] | | | | | | [facility] | | | | | | [facility] | | | | | | [facility] | | + + + + + + | Amorphous | Few (A) | None Seen /HPF | [facility] | | | Crystals, | | | [facility] | | | Urine | | | [facility] | | | | | | [facility] | | | | | | [facility] | | | | | | [facility] | | + + + + + + | Urine | Urine Culture Not | | [facility] | | | Comment | Indicated | | [facility] | | | | [facility] | | | | | | [facility] | | | | | | [facility] | | | | | | [facility] | | + + + + + + + + | Specimen | + + | Urine - Urine | | specimen obtained by | | clean catch | | procedure (specimen) | + + + + + + + | Performing | Address | City/State/Zipcode | Phone Number | | Organization | | | | + + + + + | [facility] | [address] | [place], [place] | [phone] | | [facility] | | [address] | | | [facility] | | | | + + + + + Comprehensive Metabolic Panel (08/03/2019 10:48 AM PDT) + + + + + + | Component | Value | Ref Range | Performed | Pathologist | | | | | At | Signature | + + + + + + | Na | 141 | 132 - 143 | [facility] | | | | | mmol/L | [facility] | | | | [facility] | | | | | | [facility] | | | | | | [facility] | | | | | | [facility] | | + + + + + + | K | 4.2 | 3.3 - 4.9 | [facility] | | | | | mmol/L | [facility] | | | | | [facility] | | | | | | [facility] | | | | | | [facility] | | | | | | [facility] | | + + + + + + | Cl | 103 | 95 - 108 mmol/L | [facility] | | | | | | [facility] | | | | [facility] | | | | | | [facility] | | | | | | [facility] | | | | | | [facility] | | + + + + + + | CO2 | 28 | 23 - 34 mmol/L | [facility] | | | | | | [facility] | | | | | | [facility] | | | | | | [facility] | | | | | | [facility] | | + + + + + + | Anion Gap | 10 | 7 - 16 mmol/L | [facility] | | | | | | [facility] | | | | | | [facility] | | | | | | [facility] | | | | | | [facility] | | + + + + + + | Glucose | 92 | 70 - 110 mg/dL | [facility] | | | | | | [facility] | [facility] | | | | | | [facility] | | | | | | [facility] | | | | | | [facility] | | + + + + + + | BUN | 9 | 5 - 26 mg/dL | [facility] | | | | | | [facility] | | | | | | [facility] | | | | | | [facility] | | | | | | [facility] | | + + + + + + | Creatinine | 0.94 | 0.60 - 1.30 | [facility] | | | | | mg/dL | [facility] | | | | [facility] | | | | | | [facility] | | | | | | [facility] | | | | | | [facility] | | + + + + + + | eGFR if not | >60Comment: GLOMERULAR | >=60 | [facility] | | | | FILTRATION | mL/min/1.73m2 | [facility] | | | PERUVIAN | RATE,ESTIMATED | | [facility]OSPITAL | | | | mL/min/1.43t1Uggh than | | [facility] | | | | 60 Chronic kidney | | MEDICAL | | | | disease,if found over a | | CENTER LAB | | | | 3-month period.Less than | | | | | | 15 Kidney failureFor | | | | | | | | | | | | Americans,multiply the | | | | | | calculated GFR by 1.21. | | | | | | | | | | + + + + + + | Calcium | 9.9 | 8.3 - 10.0 | [facility] | | | | | mg/dL | [facility] | [facility] | | | | | | [facility] | | | | | | [facility] | | | | | | [facility] | | + + + + + + | Albumin | 4.3 | 3.0 - 4.5 g/dL | [facility] | | | | | | [facility] | | | | [facility] | | | | | | [facility] | | | | | | [facility] | | | | | | [facility] | | + + + + + + | Bilirubin | 0.5 | 0.0 - 1.2 mg/dL | [facility] | | | Total | | | [facility] | | | | [facility] | | | | | | [facility] | | | | | | [facility] | | | | | | [facility] | | + + + + + + | Total | 8.1 | 6.6 - 8.5 g/dL | [facility] | | | Protein | | | [facility] | | | | | | [facility] | | | | | | [facility] | | | | | | [facility] | | | | | | [facility] | | + + + + + + | AST | 19 | 0 - 38 U/L | [facility] | | | | | | [facility] | | | | | | [facility] | | | | | | [facility] | | | | | | [facility] | | + + + + + + | ALT | 22 | 16 - 63 U/L | [facility] | | | | | | [facility] | | | | | | [facility] | | | | | | [facility] | | | | | | [facility] | | + + + + + + | Alkaline | 77 | 46 - 116 U/L | [facility] | | | Phosphatase | | | [facility] | | | | | | [facility] | | | | | | [facility] | | | | | | [facility] | | | | | | [facility] | | + + + + + + | Globulin | 3.8 | 2.4 - 4.5 g/dL | [facility] | | | | | | [facility] | [facility] | | | | | | [facility] | | | | | | [facility] | | | | | | [facility] | | + + + + + + | Albumin/Katy | 1.1 | 0.8 - 2.0 | [facility] | | | bulin Ratio | | | [facility] | | [facility] | | | | | | [facility] | | | | | | [facility] | | | | | | [facility] | | + + + + + + | BUN/Creatin | 9.6 | 7.0 - 24.0 | [facility] | | | ine Ratio | | | [facility] | | [...] + + + + + | [facility] | [address] | [place], [place] | [phone] | | [facility] | | [address] | | | [facility] | | | | + + + + + documented in this encounter Visit Diagnoses + + | Diagnosis | + + | Attention deficit hyperactivity disorder (ADHD), combined type - Primary | + + | Tobacco abuse Tobacco use disorder | + + | Chronic sore throat Chronic pharyngitis | + + | Dysuria | + + | High risk medication use Encounter for long-term (current) use of other medications | + + | Periodic health assessment, general screening, adult Routine general medical | | examination at a health care facility | + + | Hyperlipidemia, unspecified hyperlipidemia type | + + | Acquired deviated nasal septum Deviated nasal septum | + + documented in this encounter
--- OUTSIDE RECORDS SUMMARY | ~2019-09-25 | XMS | Encounter Summary ---
Demographics + + + | Address | [address] | | | [place] [address] | + + + | Home Phone | | + + + | Preferred Language | Unknown | + + + | Marital Status | | + + + | Congregational Affiliation | Unknown | + + + | Race | Unknown | + + + | Ethnic Group | Unknown | + + + Author + + + | Author | [facility] | | | and [place] | + + + | Organization | [facility] | | | [...] Team Providers + +------+ + | Care Senior Service Aide Name | Role | Phone | + +------+ + | Amanda Raman DO | PCP | | + +------+ + Reason for Visit + + + | Reason | Comments | + + + | Vertigo (Recurrent) | | + + + Encounter Details +--------+ + + + + | Date | Type | Department | Care Team | Description | +--------+ + + + + | 09/24/ | Emergency | [facility] | Era Rees, | [facility] from | | 2020 | [facility] | [facility] [address] | emergency department | | | | CENTER [address] | [place] | (Primary Dx) | | | | [place] | [address] | | | | | [address] | | | | | | [phone] | | | +--------+ + + + [...] + + + | Blood Pressure | 135/70 | 09/25/2019 11:22 AM | | | | | PDT | | + + + + + | Pulse | 80 | 09/25/2019 11:30 AM | | | | | PDT | | + + + + + | Temperature | 38 C (100.4 F) | 09/25/2019 11:22 AM | | | | | PDT | | + + + + + | Respiratory Rate | 19 | 09/25/2019 11:22 AM | | | | | PDT | | + + + + + | Oxygen Saturation | 92% | 09/25/2019 11:22 AM | | | | | PDT | | + + + + + | Inhaled Oxygen | - | - | | | Concentration | | | | + + + + + | Weight | 56.7 kg (125 lb) | 09/25/2019 11:22 AM | | | | | PDT | | + + + + + | Height | 157.5 cm (5' 2") | 09/25/2019 11:22 AM | | | | | PDT | | + + + + + | Body Mass Index | 22.86 | 09/25/2019 11:22 AM | | | | | PDT | | + + + + + documented in this encounter Medications at Time of Discharge + + + +---------+ + + | Medication | Sig | Dispensed | Refills | Start | End Date | | | | | | Date | | + + + +---------+ + + | | Take 1 tablet (5 mg | 30 | 0 | 09/08/19 | | | amphetamine-dextroam | total) by mouth | tablet | | 20 | | | phetamine (ADDERALL) | Daily | | | | | | 5 mg tablet | | | | | | + + + +---------+ + + documented as of this encounter ED Notes Era Rees, WESLY - 09/25/2019 11:25 AM PDTFormatting of this note might be different [facility] Note Name: Arnoldo Crane Date: 09/25/2019 : 1980 Room Number: ED10 PCP: Amanda Raman DO ED Course and Medical Decision Making: Arnoldo Crane presented to the ED for evaluation. Patient was seen and evaluated in room ED1 0 after treatment room placement. Nursing notes, available history, and current home medic ations were reviewed. Clinical considerations includes but is not limited to vertigo, dehydr ation, electrolyte imbalance, mesenteric adenitis, appendicitis, bowel obstruction, urolithi asis, nephrolithiasis, UTI, pyelonephritis.. 1138: In triage his initial heart rate was 138 bpm. We will plan on giving 1 L normal sali ne along with Antivert and Zofran 4 mg IV once IV is established. 1150: was informed patient was upset and I went in to discuss plan of care and his reasons for being upset and yelling at senior staff consultant. Informed patient that there was multiple reasons f or him to have vertigo and nausea/vomiting along with his abdominal pain. He stated that th e IV that was started in his wrist because his knuckle to become numb in his first finger th erefore he requested to be removed. Encouraged him to allow us to restart his IV get blood work and complete his work-up. He was agreeable to this as long as another hour and was sen t in to complete this. I told him I would send in another staff member but all may be busy and therefore may take a while. 1204: Informed patient eloped from the department before any blood, urine, or imaging could be completed. Final Clinical Impression(s): 1. Eloped from emergency department Disposition: Eloped Condition: Vital signs are stable Plan: Follow-up PCP. Rx and Follow up: ED Prescriptions None Orders competed in ER Medications - No data to display Extended ED Note CC: Chief Complaint Patient presents with Vertigo (Recurrent) Method of Arrival: walk-in Treatment ELEMENT BURNER (EMS): N/A Treatment ELEMENT BURNER (Patient/Family): N/A HPI: History obtained from: patient Arnoldo Crane is a 39 y.o. male who presents with dizziness since this morning, in addition t o N/V, lower abdominal pain, and chills. He denies any changes to bowel movements or urinati on. Review of Systems Review of Systems Constitutional: Positive for chills. Gastrointestinal: Positive for abdominal pain (lower), nausea and vomiting. Negative for bl ood in stool, constipation and diarrhea. Genitourinary: Negative. Neurological: Positive for dizziness. Physical Exam Vital Signs: Vitals Current 24 Hour Min / Max Temp (!) 38 C (100.4 F) Temp Min: 38 C (100.4 F) Max: 38 C (100.4 F) BP 135/70 BP Min: 135/70 Max: 135/70 HR 80 Pulse Min: 38 Max: 80 Sats 92 % SpO2 Min: 92 % Max: 92 % Physical Exam Constitutional: He appears well-developed and well-nourished. No distress. HENT: Head: Normocephalic and atraumatic. Right Ear: External ear normal. Left Ear: External ear normal. Eyes: Conjunctivae are normal. Neck: Normal range of motion. Cardiovascular: Regular rhythm and normal heart sounds. Tachycardia present. Exam reveals n o gallop and no friction rub. No murmur heard. Pulmonary/Chest: Effort normal and breath sounds normal. No respiratory distress. He has no wheezes. He has no rales. Abdominal: Soft. There is generalized abdominal tenderness. There is no rebound and no guar ding. Skin: He is not diaphoretic. Nursing note and vitals reviewed. Past Medical, Surgical, Social, and Family History Past Medical History: Diagnosis Date Depression Kidney stones at age 10 Past Surgical History: Procedure Laterality Date OTHER SURGICAL HISTORY Ankle surgery pin placed. Social History Tobacco Use Smoking status: Current Every Day Smoker Smokeless tobacco: Never Used Tobacco comment: 5-10 a day Substance Use Topics Alcohol use: Not Currently Drug use: Yes Types: Marijuana Comment: occasion Family History Problem Relation Age of Onset Kidney cancer Mother Depression Mother Depression Sister Depression Brother Depression Maternal Aunt Depression Maternal Uncle ELEMENT BURNER Home Medications Medication Sig amphetamine-dextroamphetamine (ADDERALL) 5 mg tablet Take 1 tablet (5 mg total) by mout h Daily This document serves as a record of the serviced and decision personally performed by Era Rees NP. It was created on their behalf by Martin Marcial, a trained medical secretary receptionist. The creation of this document is based on the provider's statements to the medical secretary receptionist. Parts of this note may have been created using [employer] which is a voice recognition software . It inherently makes mistakes with substitution of words that sound similar. Era Rees NP 09/25/19 1208 Era Rees NP 09/25/19 1208 Lisa Narayanan RN - 09/25/2019 11:23 AM PDTPt c/o's vertigo, fever, SOB x 2 days documented in this encounter Plan of Treatment + +------+--------+ + + | Name | Type | Priori | Associated Diagnoses | Date/Time | | | | ty | | | + +------+--------+ + + | ED INFORMATION | ALIZA | Routin | | 09/25/2019 11:15 AM | | EXCHANGE | | e [...] | | | EXCHANGE | e | 11:15 AM | | | | | | PDT | | | + +--------+ + + + +---+--------+ | | | | | Proced | | | ure | | | Note - | | | Claude, | | | Lab In | | | | | | Hlseve | | | n - | | | | | | 2019 | | | 11:16 | | | AM PDT | | [...] | | | FICATI | | | ON?/ | | | | | | 0 | | | 11:14? | | | CRANE, | | | | | | ARNOLDO? | | | MRN: | | | [id number] | | | [id number] | | | riteri | | | a Met | | | PDMP | | | Has | | | [...] | | | St. | | | [place] | | | y | | | [...] | | | s | | | [place] | | | ED | | | Dispar | | | ity | | | Measur | | | e - | | | [place] | | | has | | | [...] | | | s. | | | [place] | | | | | | Health [...] | | | By: | | | [place] | | | | | | Health | | | | | | Author | | | ity | | | (OHA) | | | / | | | Attrib | | | uted | | | On: | | | 02/05/ | | | 2020 | | | Prescr | | | iption | | | Drug | | | Report | | | (12 | | | [place]Rx | | | | | | Detail | | | sFill | | | Date | | | Drug | | | Descri | | | ption | | | Qty. | | | Prescr | | | iber | | | CS MED | | | | | | 2020-0 | | | 6-23 | | | DEXTRO | | | AMP-AM | | | PHETAM | | | INE 5 | | | MG TAB | | | 30 | | | VIDHYA | | | HANNHA, | | | DO 2 | | | 0 | | | 2020-0 | | | 5-18 | | | DEXTRO | | | AMP-AM | | | PHETAM | | | INE 5 | | | MG TAB | | | 30 | | | AMANDA | | | MIMI | | | , DO 2 | | | 0 | | | 2020-0 | | | 3-04 | | | DEXTRO | | | AMP-AM | | | PHETAM | | | INE 5 | | | MG TAB | | | 28 | | | BETO | | | LEIDA | | | 2 0 | | | 2020-0 | | | 1-28 | | | DEXTRO | | | AMP-AM | | | PHETAM | | | INE 5 | | | MG TAB | | | 30 | | | BETO | | | LEIDA | | | 2 0 | | | 2020-0 | | | 1-03 | | | DEXTRO | | | AMP-AM | | | PHETAM | | | INE 5 | | | MG TAB | | | 28 | | | BETO | | | LEIDA, | | | PA-C | | | 2 0 | | | 2019- | | | 2-02 | | | DEXTRO | | | AMP-AM | | | PHETAM | | | INE 5 | | | MG TAB | | | 30 | | | BETO | | | LEIDA, | | | PA-C | | | 2 0 | | | 2019 | | | 0-21 | | | DEXTRO | | | AMP-AM | | | PHETAM | | | INE 5 | | | MG TAB | | | 30 | | | ERA | | | JOHNSO | | | N, | | | PA-C 2 | | | 0 | | | 2019- | | | 8-27 | | | DEXTRO | | | AMP-AM | | | PHETAM | | | INE 5 | | | MG TAB | | | 30 | | | ERA | | | JOHNSO | | | N, | | | PA-C 2 | | | 0 | | | 2019-0 | | | 7-31 | | | DEXTRO | | | AMP-AM | | | PHETAM | | | INE 5 | | | MG TAB | | | 28 | | | KAHLIL | | | | | | JARREL | | | L 2 0 | | | Rx | | | Summar | | | yMetri | | | c | | | Count | | | CS | | | II-V | | | Rx 9 | | | CS-II | | | Rx 9 | | | Quanti | | | ty | | | Dispen | | | sed | | | 264 | | | Unique | | | | | | Prescr | | | ibers | | | 6 | | | Unique | | | | | | Pharma | | | cies 3 | | | | | | Benzos | | | 0 | | | Opioid | | | s 0 | | | Long | | | Acting | | | | | | Opioid | | | s 0 | | | E.D. | | | Visit | | | Count | | | (12 | | | mo.)Fa | | | cility | | | | | | Visits | | | | | | [facility] | | | [facility] | | | | | | [facility] | | | al 1 | | | Total | | | 1 | | | Note: | | | [...] ncy | | | | | | Vertig | | | o | | | OUTSID | | | E Rob | | | 10, | | [...] | | | /notif | | | [id number] | | | [id number] | | | [id number] | | | [id number] | | | [id number] | | | [id number] | | | b8 | | | PLEASE | | | [...] +---+--------+ documented in this encounter Visit Diagnoses + + | Diagnosis | + + | Eloped from emergency department - Primary | + + documented in this encounter
--- OUTSIDE RECORDS SUMMARY | ~2019-09-25 | XMS | Clinical Summary ---
Demographics + + + | Address | [address] | | | [place] [address] | + + + | Home Phone | | + + + | Preferred Language | Unknown | + + + | Marital Status | | + + + | Mandaen Affiliation | Unknown | + + + | Race | Unknown | + + + | Ethnic Group | Unknown | + + + Author + + + | Author | [facility] | | | and [place] | + + + | Organization | [facility] | | [...] Team Providers + +------+ + | Care Geology Teacher Name | Role | Phone | + +------+ + | Amanda Raman DO | PCP | | + +------+ + Allergies No Known Allergies Medications + + + +---------+------+------+-------+ | Medication | Sig | Dispensed | Refills | Star | End | Statu | | | | | | t | Date | s | | | | | | Date | | | + + + +---------+------+------+-------+ | | Take 1 tablet (5 mg | 30 | 0 | 06/2 | | Activ | | amphetamine-dextroam | total) by mouth | tablet | | 3/20 | | e | | phetamine (ADDERALL) | Daily | | | 20 | | | | 5 mg tablet | | | | | | | + + + +---------+------+------+-------+ | | Take 1 tablet by | 30 | 0 | 07/16 | 08/17 | Disco | | amphetamine-dextroam | mouth Daily. | tablet | | 11/04 | 06/04 | ntinu | | phetamine (ADDERALL) | | | | 20 | 20 | ed | | 5 mg tablet | | | | | | (Reor | | | | | | | | jaquelin | | | | | | | | (no | | | | | | | | Cance | | | | | | | | l Rx | | | | | | | | msg)) | + + + +---------+------+------+-------+ Active Problems + + + | Problem | Noted Date | + + + | Attention deficit hyperactivity disorder (ADHD), combined type | 08/03/2019 | + + + | Tobacco abuse | 08/03/2019 | + + + | HLD (hyperlipidemia) | 08/03/2019 | + + + | High risk medication use | 08/03/2019 | + + + | Chronic sore throat | 08/03/2019 | + + + | Acquired deviated nasal septum | 08/03/2019 | + + + + + | Overview: Prior nose fracture | + + Encounters +--------+ + + + + | Date | Type | Specialty | Care Team | Description | +--------+ + + + + | 09/24/ | Emergency | Emergency Medicine | Era Rees, | Sherron from | | 2019 | | | SEPARATING MACHINE 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 | emergency department | | | | | | (Primary Dx) | +--------+ + + + + | 09/24/ | Clinical | Primary Care | Amanda Raman, | | | 2019 | Support | | DO | | +--------+ + + + + | 09/07/ | Refill | Primary Care | Amanda Raman, | Medication Refill | | 2019 | | | DO | | +--------+ + + + + | 09/01/ | Office | Otolaryngology | Arnulfo Raymundo MD | Chronic sore throat; | 2019 | Visit | | | Tobacco abuse; | | | | | | Acquired deviated | | | | | | nasal septum | +--------+ + + + + | 08/05/ | Telephone | Primary Care | Amanda Raman, | Lab Results | 2019 | | | DO | | +--------+ + + + + | 08/03/ | Telephone | Primary Care | Amanda Raman, | Lab Results | 2019 | | | DO | | +--------+ + + + + | 08/02/ | Office | Primary Care | Amanda Raman, | Attention deficit | | 2019 | Visit | | DO | hyperactivity | | | | | | disorder (ADHD), | | | | | | combined type | | | | | | (Primary Dx); | | | | | | Tobacco abuse; | | | [...] | | | | nasal septum | +--------+ + + + + | 08/01/ | Telephone | Primary Care | Amanda Raman, | Screening For | | 2019 | | | DO | Communicable Disease | +--------+ + + + + from Last 3 Months Family History + + +------+ + | Medical History | Relation | Name | Comments | + + +------+ + | Depression | Brother | | | + + +------+ + | Depression | Maternal | | | | | Aunt | | | + + +------+ + | Depression | Maternal | | | | | Uncle | | | + + +------+ + | Depression | Mother | | | + + +------+ + | Kidney cancer | Mother | | | + + +------+ + | Depression | Sister | | | + + +------+ + + +------+--------+ + | Relation | Name | Status | Comments | + +------+--------+ + | Brother | | | | + +------+--------+ + | Maternal Aunt | | | | + +------+--------+ + | Maternal Uncle | | | | + +------+--------+ + | Mother | | | | + +------+--------+ + | Sister | | | | + +------+--------+ + Social History + +-------+ +--------+------+ | [...] on file | | + + + Last Filed Vital Signs + + + [...] | | + + + + + Plan of Treatment + + +-------+ + | Health Maintenance | Due Date | Last | Comments | | | | Done | | + + +-------+ + | Vaccine: | | | | | Pneumococcal 19-64 | 4 | | | | (1 of 1 - PPSV23) | | | | + + +-------+ + | Vaccine: | | | | | Dtap/Tdap/Td (1 - | 7 | | | | Tdap) | | | | + + +-------+ + | Vaccine: Influenza | | | | | (#1) | 0 | | | + + +-------+ + Procedures + +--------+ + + + | [...] | | | MRN: | | | [id number] | | | [id number] | | | riteri | | | [...] | | | St. | | | [place] | | | y | | | [...] | | | s | | | [place] | | | ED | | | Dispar | | | ity | | | [place] | | | e - | | | [place] | | | has | | | [...] | | | s. | | | [place] | | | | | | Health [...] | | | By: | | | [place] | | | | | | Health [...] | | | VIDHYA | | | HANNAH, | | | DO 2 | | [...] | | | 2019- | | | 0-21 | | | DEXTRO | | | AMP-AM | | | PHETAM | | | INE 5 | | | MG TAB | | | 30 | | | ERA | | | JOHNSO | | | N, | | | PA-C 2 | | | 0 | | | 2019-0 | | | 8-27 | | | [...] [email or web address] | | | m | +---+--------+ + +--------+ +---+---+ | ED INFORMATION | Routin | 09/25/2019 | | | | EXCHANGE | e | 10:57 AM | | | | | | PDT | | | + +--------+ +---+---+ +---+--------+ | | | | | Proced | | | ure | | | Note - | | | Claude, | | | Lab In | | | | | | Hlseve | | | n - | | | 09/24/ | | | 2019 | | | 10:58 | | | [...] | | | MRN: | | | [id number] | | | [id number] | | | riteri | | | [...] | | | St. | | | [place] | | | y | | | [...] | | | s | | | [place] | | | ED | | | Dispar | | | ity | | | [place] | | | e - | | | [place] | | | has | | | [...] | | | s. | | | [place] | | | | | | Health [...] | | | By: | | | [place] | | | | | | Health [...] [email or web address] | | | m | +---+--------+ + +--------+ + + + | DRUGS OF ABUSE, | Routin | 08/03/2019 | High risk | Results for this | | SCREEN, URINE | e | 10:54 AM | medication use | procedure are in the | | | | PDT | | results section. | + +--------+ + + + | URINALYSIS WITH | Routin | 08/03/2019 | Dysuria | Results for this | | MICROSCOPIC WITH | e | 10:54 AM | | procedure are in the | | CULTURE IF INDICATED | | PDT | | results section. | + +--------+ + + + | LIPID PANEL | Routin | 08/03/2019 | Hyperlipidemia, | Results for this | | | e | 10:48 AM | unspecified | procedure are in the | | | | PDT | hyperlipidemia type | results section. | + +--------+ + + + | CBC WITH | Routin | 08/03/2019 | Periodic health | Results for this | | DIFFERENTIAL | e | 10:48 AM | assessment, general | procedure are in the | | | | PDT | screening, adult | results section. | | | | | Chronic sore throat | | + +--------+ + + + | COMPREHENSIVE | Routin | 08/03/2019 | High risk | Results for this | | METABOLIC PANEL | e | 10:48 AM | medication use | procedure are in the | | | | PDT | Periodic health | results section. | | | | | assessment, general | | | | | | screening, adult | | + +--------+ + + + [...] | | n - | | | 08/02/ | | | 2019 | | | 9:59 | | | [...] | | | ON?05/ | | | 18 | | | 0 | | | 09:57? | | | CRANE, | | | | | | ARNOLDO? | | | MRN: | | | [id number] | | | [id number] | | | riteri | | | [...] | | | St. | | | [place] | | | y | | | [...] | | | s | | | [place] | | | ED | | | Dispar | | | ity | | | [place] | | | e - | | | [place] | | | has | | | [...] | | | s. | | | [place] | | | | | | Health [...] | | | By: | | | [place] | | | | | | Health [...] | | | St. | | | [place] | | | y | | | [...] | | | St. | | | [place] | | | y H. | | [...] | | | St. | | | [place] | | | y H. | | [...] [email or web address] | | | m | +---+--------+ from Last 3 Months Results Urinalysis with Microscopic with Culture if Indicated [...] - 1.030 | [facility] | | | [place], | | | [facility] | | | [...] + + + + + | [facility] | [address] | [place], [place] | [phone] | | [facility] | | [address] | | | [facility] | | | | + + + + + Drugs of Abuse, Screen, Urine (08/03/2019 10:54 [...] for emergency medical use only. Not | [facility] | | intended for legal purposes. Chain of Custody not maintained. | HOSPITAL | | Confirmation of Positive results must be ordered by the attending | [facility] | | physician. Iklt-vlo-ilrwlkw drugs may cross react with some methods. [...] + + | [facility] | [address] | [place], [place] | [phone] | | [facility] | | [address] | | | [facility] | | | | + + + + + Lipid Panel (08/03/2019 10:48 AM PDT) + [...] | | HOSPITAL | | | | [id number] - 129 mg/dL | | [facility] | | | | Near Gretwuq087 - | | MEDICAL | | | | 159 mg/dL | | CENTER LAB | | | | [id number] - 189 | | | | | [...] + + | [facility] | [address] | [place], [place] | [phone] | | [facility] | | [address] | | | [facility] | | | | + + + + + CBC with Differential (08/03/2019 10:48 AM PDT) + +---------+ + + + | Component | Value | Ref Range | Performed | Pathologist | | | | | At | Signature | + +---------+ + + + | White Blood | 8.2 | 4.6 - 10.5 K/uL | [facility] | | | Cells | | | [facility] | [facility] | | | | | | [facility] | | + +---------+ + + + | Red Blood | 5.20 | 4.36 - 5.83 | [facility] | | | Cells | | M/uL | [facility] | | | | [facility] | | | | | | [facility] | | + +---------+ + + + | Hemoglobin | 16.1 | 13.1 - 17.4 | [facility] | | | | | g/dL | [facility] | | | | [facility] | | | | | | [facility] | | + +---------+ + + + | Hematocrit | 47.3 | 39.0 - 51.9 % | [facility] | | | | | | [facility] | | [facility] | [facility] | | | | | | [facility] | | + +---------+ + + + | MCV | 91.0 | 82.0 - 96.0 fL | [facility] | | | | | | [facility] | | | | | | [facility] | | + +---------+ + + + | MCH | 31.0 | 27.7 - 32.3 pg | [facility] | | | | | | [facility] | | | | | | [facility] | | + +---------+ + + + | MCHC | 34.0 | 32.0 - 36.9 | [facility] | | | | | g/dL | [facility] | | | | | | [facility] | | + +---------+ + + + | RDW-CV | 13.3 | 0.0 - 17.0 % | [facility] | | | | | | [facility] | [facility] | | | | | | [facility] | | + +---------+ + + + | Platelet | 311 | 150 - 450 K/uL | [facility] | | | Count | | | [facility] | | | | [facility] | | | | | | [facility] | | + +---------+ + + + | MPV | 9.4 | 9.4 - 12.4 fL | [facility] | | | | | | [facility] | | | | | | [facility] | | + +---------+ + + + | % | 54.9 | 42.0 - 76.0 % | [facility] | | | Neutrophils | | | [facility] | | | | | | [facility] | | + +---------+ + + + | % | 33.4 | 20.0 - 40.0 % | [facility] | | | Lymphocytes | | | [facility] | | | | | | [facility] | | + +---------+ + + + | % Monocytes | 7.5 | 3.0 - 13.0 % | [facility] | | | | | | [facility] | | | | [facility] | | | | | | [facility] | | + +---------+ + + + | % | 2.7 | 0.0 - 7.0 % | [facility] | | | Eosinophils | | | [facility] | | | | | | [facility] | | + +---------+ + + + | % Basophils | 0.9 | 0.0 - 2.0 % | [facility] | | | | | | [facility] | | | | | | [facility] | | + +---------+ + + + | % Immature | 0.6 (H) | 0.0 - 0.5 % | [facility] | | | Granulocyte | | | [facility] | | | s | | | [facility]OSPITAL | | | | | | LABORATORY | | + +---------+ + + + | Absolute | 4.49 | 2.80 - 7.70 | [facility] | | | Neutrophils | | K/uL | [facility] | | | | | | [facility] | | + +---------+ + + + | Absolute | 2.73 | 1.20 - 3.30 | [facility] | | | Lymphocytes | | K/uL | [facility] | | | | | | [facility] | | + +---------+ + + + | Absolute | 0.61 | 0.00 - 0.80 | [facility] | | | Monocytes | | K/uL | [facility] | | | | | | [facility] | | + +---------+ + + + | Absolute | 0.22 | 0.00 - 0.70 | [facility] | | | Eosinophils | | K/uL | [facility] | | | | | | [facility] | | + +---------+ + + + | Absolute | 0.07 | 0.00 - 0.20 | [facility] | | | Basophils | | K/uL | [facility] | | | | | | [facility] | | + +---------+ + + + | Absolute | 0.05 | 0.00 - 0.15 | [facility] | | | Immature | | K/uL | [facility] | | | Granulocyte | | | [facility]OSPITAL | | | s | | | LABORATORY | | + +---------+ + + + | % nRBC | 0 | <=0 per 100 | [facility] | | | | | WBCs | [facility] | [facility] | | | | | | [facility] | | + +---------+ + + + | Absolute | 0.00 | 0.00 - 0.01 | [facility] | | | nRBC | | K/uL | [facility] | | | | | | [facility] | | + +---------+ + + + + + | Specimen | + + | Blood | + + + + + + + | Performing | Address | City/State/Zipcode | Phone Number | | Organization | | | | + + + + + | [facility] | [address] | [place] | [phone] | | [facility] | | [address] | | + + + + + [...] | mL/min/1.73m2 | [facility] | | | [facility] | RATE,ESTIMATED | | [facility]OSPITAL | | | | mL/min/1.41d6Rioq than | | [facility] | | | [...] | | ine Ratio | | | [facility] | | | | | | HOSPITAL [...] + + | [facility] | [address] | [place], [place] | [phone] | | [facility] | | [address] | | | [facility] | | | | + + + + + from Last 3 Months Insurance + +--------+ +--------+ +---------+--------+ | Payer | Benefi | Subscriber | Effect | Phone | Address | Type | | | t Plan | ID | joseph | | | | | | / | | Dates | | | | | | Group | | | | | | + +--------+ +--------+ +---------+--------+ | [employer] | [employer] | [id number] | | [phone] | | Medica | | MEDICAID HMO | HEALTH | | 020-Pr | 1 | | id | | | MDCD | | esent | | | | | | [place]MO [place] | | | | | | + +--------+ +--------+ +---------+--------+ + +--------+ +--------+ + + | Guarantor Name | Accoun | Relation to | Date | Phone | Billing Address | | | t Type | Patient | of | | | | | | | | | | + +--------+ +--------+ + + | Subhash Crane | Person | Self [birth year] | [address] | | | al/Fam | | 1980 | [phone] | [place] [address] | | | gina | | | 6 (Home) | | + +--------+ +--------+ + + Advance Directives + + + + + | Type | Date Recorded | Patient | Explanation | | | | 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
--- OUTSIDE RECORDS SUMMARY | ~2019-09-25 | XMS | Encounter Summary ---
Demographics + + + | Address | [address] | | | [place] [address] | + + + | Home Phone | | + + + | Preferred Language | Unknown | + + + | Marital Status | | + + + | Catholic Affiliation | Unknown | + + + | Race | Unknown | + + + | Ethnic Group | Unknown | + + + Author + + + | Author | [facility] | | | and [place] | + + + | Organization | [facility] | | | and [...] Team Providers + +------+ + | Care Gun Examiner Name | Role | Phone | + +------+ + | Amanda Raman DO | PCP | | + +------+ + Reason for Visit +--------+ + | Reason | Comments | +--------+ + | Other | chronic sore throat and deviated septum | +--------+ + Evaluate & Treat (Routine) + + + + + + + | Status | Reason | Specialty | Diagnoses / | Referred By | Referred To | | | | | Procedures | Contact | Contact | + + + + + + + | Authorized | Specialty | Otolaryngolog | Diagnoses | [place], | [facility] | | | Services | y | Chronic | Amanda A, DO | [address] | | | Required | | pharyngitis | [address] | [address] [place] | | | | | Deviated | [place], | [place] | | | | | nasal septum | [place] [address] | [place], [place] | | | | | Tobacco | Phone: | [phone] | | | | | use | [phone] | Phone: | | | | | Procedures | Fax: | [phone] | | | | | [place] | [phone] | Fax: | | | | | | | [phone] | + + + + + + + Encounter Details +--------+---------+ + + + | Date | Type | Department | Care Team | Description | +--------+---------+ + + + | 09/01/ | Office | [facility] | Arnulfo Raymundo MD | Chronic sore throat; | | 2019 | Visit | [facility] [address] | [address] [place] | Tobacco abuse; | | | | [address] [place] | [place] | Acquired deviated | | | | [place], [place] | [address] | nasal septum | | | | [address] | [phone] | | | | | [phone] | | | +--------+---------+ + + + Social History [...] + + + | Blood Pressure | 120/68 | 09/02/2019 2:47 PM | | | | | PDT | | + + + + + | Pulse | 74 | 09/02/2019 2:47 PM | | | | | PDT | | + + + + + | Temperature | - | - | | + + + + + | Respiratory Rate | 16 | 09/02/2019 2:47 PM | | | | | PDT | | + + + + + | Oxygen Saturation | 99% | 09/02/2019 2:47 PM | | | | | PDT | | + + + + + | Inhaled Oxygen | - | - | | | Concentration | | | | + + + + + | Weight | 59.4 kg (131 lb) | 09/02/2019 2:47 PM | | | | | PDT | | + + + + + | Height | - | - | | + + + + + | Body Mass Index | 18.53 | 08/03/2019 10:10 AM | | | | | PDT | | + + + + + documented in this encounter Patient Instructions Patient Instructions Arnulfo Raymundo MD - 09/02/2019 3:00 PM PDTThe sure and stay well-hydr ated. You may use saline nasal spray 7-8 times per day to keep your nasal passages moist. What ever you can to eliminate smoke exposure to your pharynx. If you are bothered with lulu al obstruction in the future I would be more than happy to see you back to discuss options f or management of that. documented in this encounter H&P Notes Arnulfo Raymundo MD - 09/02/2019 3:00 PM PDT Otolaryngology Clinic Note For: Ruiz Parker 39 y.o. [id number] On 09/02/2019, Ruiz Parker was seen by Arnulfo Raymundo MD Patient is referred with Chief Complaint Patient presents with Other chronic sore throat and deviated septum Patient's Primary Provider is Amanda Raman DO History of Present Illness: Based on my review of his electronic health record, patient is being referred by his primary care provider due to a chronic sore throat which is been prese nt for at least 8 months. He did not report dysphasia or ear pain. He does smoke cigarette s and marijuana. In my speaking with the patient, he reports that he has had a off and on irritated throat f or years. He has not had his tonsils removed. He does not describe severe infections in hi s tonsils or his throat but describes a longstanding sense of mild irritation in his pharynx . He has had no significant change in his voice his breathing or his swallowing. He does n ot describe GE reflux symptoms and in the past did try limh-spg-bnjpluc Pepcid that did not seem to have any effect on his irritated throat. He does smoke cigarettes and marijuana on a daily basis. He has a history of nasal trauma. He did have a nasal fracture and he believes a septal de viation at that time. He does use Breathe Right strips. He occasionally uses a Linda pot when he feels like his nose is obstructed. He was allergy tested sometime ago he has never received allergy treatments. Prior Workup Includes: Laboratory:. Patient had a normal CBC and BMP on August 03, 2019. Radiology:. None Pathology:. None Past Medical Hitory: Patient Active Problem List Diagnosis Attention deficit hyperactivity disorder (ADHD), combined type Tobacco abuse HLD (hyperlipidemia) High risk medication use Chronic sore throat Acquired deviated nasal septum Past Medical History: Diagnosis Date Depression Kidney stones at age 10 Past Surgical History: Procedure Laterality Date OTHER SURGICAL HISTORY Ankle surgery pin placed. reports that he has been smoking. He has never used smokeless tobacco. He reports previous alcohol use. He reports current drug use. Drug: Marijuana. Meds: Current Outpatient Medications on File Prior to Visit Medication Sig Dispense Refill amphetamine-dextroamphetamine (ADDERALL) 5 mg tablet Take 1 tablet by mouth Daily. 30 t ablet 0 No current facility-administered medications on file prior to visit. Allergies: No Known Allergies Physical Exam: Vitals: 09/02/19 1447 BP: 120/68 Pulse: 74 Resp: 16 PainSc: 3 PainLoc: Throat Ears:. The right external ear and external auditory canal show no lesions. The right tymp anic membrane is normal in appearance. There is no fluid or inflammation in the right middl e ear. The tympanic membrane moves well with pneumatic otoscopy. The left external ear and external auditory canal show no lesions. The tympanic membrane o n the left is normal in appearance. There is no fluid or inflammation in the middle ear on the left. The tympanic membrane moves well with pneumatic otoscopy. Eyes:. Examination of the eyes reveals the pupils were equal round and reactive to light. Extraocular movements were intact. There was no enophthalmos for proptosis. Nose:. On examination of his nose he has a moderate septal deviation of the anterior septu m to the right and on the left side he has a mid septal deflection to the left. His turbina deep are not boggy. He has no inflammation or mucopus. He breathes reasonably well through both the right and left nostrils. His nasal pharyngeal examination shows no mucosal lesions crusting or inflammation. Oral cavity/Oropharynx:. No mucosal lesions in the oral cavity or oropharynx. The floor o f mouth and tongue are soft. Dentition is in reasonable repair. He has very tiny tonsils. No evidence of inflammation in the pharynx. No lesions. Hypopharynx/Larynx: Examination with a flexible fiberoptic scope demonstrates normal vocal cord mobility. No inflammation or lesions. Subglottis and upper trachea appear normal. Neck:. No periparotid or cervical adenopathy. Skin:. No skin lesions ASSESSMENT: Mild nasal drying and nasal obstruction related to septal deviation. No lesion s seen on complete head and neck examination. Chronic mild irritation in the pharynx likely related to cigarette and marijuana smoke. PLAN: I spoke to the patient at length regarding my findings. I talked with him about usin g saline nasal spray to keep his nasal passages moist. We talked about the potential utilit y of septoplasty. He is not interested in pursuing that. We talked about some conservative measures that he can use for GE reflux. Strongly counseled him to decrease or stop the exp osure of his pharynx to smoke of any kind. I advised him that I would be more than happy to see him back if at some point in the future he would like to have his nasal obstruction add ressed with septoplasty.. CLINIC PROCEDURE PERFORMED: FLEXIBLE FIBEROPTIC LARYNGOSCOPY Indications: Chronic throat pain I spoke with the patient about the benefits and downsides of flexible fiberoptic laryngosco py. I answered all of the patients questions and the patient would like to proceed. Anesthesia (3% lidocaine) and vasoconstriction (0.25% phenylephrine) were sprayed in the na alissa passages. The nasal passages, nasopharynx, oropharynx, hypopharynx and larynx were exam ined with the flexible fiberoptic scope. The examination was photo documented. Findings from the examination are detailed in the physical examination above. Patient tolerated the procedure well. This note was transcribed using voice recognition software; there may be speech recognition errors which escaped detection during review. Arnulfo Raymundo MD 09/02/2019 documented in this enco unter Plan of Treatment Not on filedocumented as of this encounter Visit Diagnoses + + | Diagnosis | + + | Chronic sore throat Chronic pharyngitis | + + | Tobacco abuse Tobacco use disorder | + + | Acquired deviated nasal septum Deviated nasal septum | + + documented in this encounter"
[~2019-09-25 15:54] MED LIST: IBUPROFEN600 MG PO; PENICILLIN V P500 MG PO
--- OUTSIDE RECORDS SUMMARY | 2019-09-25 15:56 | XMS ---
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 Care History Medical/Surgical 08/27/2018 [facility] - PATIENT DOES HAVE A PCP- DR MAT BRAXTON AT [facility]. - PLEASE REFER PATIENT TO DENTIST DR NIRMAL BUNCH [phone] FOR ANY DENTAL CONCERNS/PAIN. E.DJeffrey VISIT COUNT (12 MO.) 1 Micky Lennon TOTAL 2 NOTE: Visits indicate total known visits. 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
[2019-09-25] MEDS ORDERED: AMPHETAMINE SALT5 MG PO (16:05)
--- NOTE | 2019-09-26 09:14 | EKG ---
[facility] [address] [place] [address] Signed Normal sinus rhythm Normal ECG No previous ECGs available Confirmed by RONNA LOAIZA MD ([id number]) on 09/26/2019 9:13:45 AM Electronically Signed By: RONNA LOAIZA MD 09/26/19 0914 PATIENT NAME: JESUS CRANE Electrocardiogram DATE OF : 76 PHYSICIAN: RONNA LOAIZA MD REPORT #: [id number] REPORT IS CONFIDENTIAL AND NOT TO BE RELEASED WITHOUT AUTHORIZATION
== END 2019-09-25 18:31 | disposition home or self-care (01) ==
LOC: ED 15:54
DX: B34.9 Viral infection, unspecified (principal); Z20.828 Contact with and (suspected) exposure to other viral communicable diseases; F17.200 Nicotine dependence, unspecified, uncomplicated
CPT/HCPCS: 71045; 74177; 80053; 83690; 85025; 93005; 93010; 96375; 99285-25; C9803; J2270; J2405; J7030; Q9967; U0002

== ENCOUNTER 2020-03-24 08:00 | Emergency (ER) | payer OTHER ==
[~2020-03-24] VITALS: Ht 180.3 cm; Wt 61.2 kg
[~2020-03-24 08:00] MED LIST changes: +AMPHETAMINE SALT5 MG PO
--- OUTSIDE RECORDS SUMMARY | 2020-03-24 08:16 | XMS ---
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 Care History Medical/Surgical 08/27/2018 [facility] - PATIENT DOES HAVE A PCP- DR MAT BRAXTON AT [facility]. - PLEASE REFER PATIENT TO DENTIST DR NIRMAL BUNCH [phone] FOR ANY DENTAL CONCERNS/PAIN. E.D. VISIT COUNT (12 MO.) 1 Micky Lennon TOTAL 3 NOTE: Visits indicate total known visits. ED/UCC VISIT TRACKING (12 MO.) 03/24/2020 08:01 QUEENIE Dasilva OR TYPE: Emergency COMPLAINT: - FLANK/BACK PAIN 09/25/2019 15:54 QUEENIE Goodenjordon EspositoJeffrey Morgan OR TYPE: Emergency COMPLAINT: - FEVER, COUGH DIAGNOSES: - Dizziness and giddiness - Viral infection, unspecified - Nicotine dependence, unspecified, uncomplicated - Contact with and (suspected) exposure to other viral communicable diseases 09/25/2019 11:14 Micky OLSON OR TYPE: Emergency DIAGNOSES: - Vertigo OUTSIDE - Procedure and treatment not carried out due to patient leaving prior to being seen by health care provider - Vertigo (Recurrent) INPATIENT VISIT TRACKING (12 MO.) No inpatient visits to display in this time frame [id number]
== END 2020-03-24 11:58 | disposition home or self-care (01) ==
LOC: ED 08:00
DX: R10.9 Unspecified abdominal pain (principal); R91.1 Solitary pulmonary nodule; F17.200 Nicotine dependence, unspecified, uncomplicated; Z79.899 Other long term (current) drug therapy
CPT/HCPCS: 71260; 74176; 80053; 81001; 85025; 96374; 96375; 99284-25; J1885; J2405; Q9967

== ENCOUNTER 2020-05-31 12:44 | Emergency (ER) | payer OTHER ==
[~2020-05-31] VITALS: Ht 180.3 cm; Wt 61.2 kg
--- OUTSIDE RECORDS SUMMARY | 2020-05-31 12:48 | XMS ---
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 Care History Medical/Surgical 08/27/2018 [facility] - PATIENT DOES HAVE A PCP- DR MAT BRAXTON AT [facility]. - PLEASE REFER PATIENT TO DENTIST DR NIRMAL BUNCH [phone] FOR ANY DENTAL CONCERNS/PAIN. E.D. VISIT COUNT (12 MO.) 1 Micky Lennon TOTAL 4 NOTE: Visits indicate total known visits. 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 - Nicotine dependence, unspecified, uncomplicated - Unspecified abdominal pain - Solitary pulmonary nodule 09/25/2019 15:54 QUEENIE Dasilva OR TYPE: Emergency COMPLAINT: - FEVER, COUGH DIAGNOSES: - Dizziness and giddiness - Viral infection, unspecified - Nicotine dependence, unspecified, uncomplicated - Contact with and (suspected) exposure to other viral communicable diseases 09/25/2019 11:14 Micky Mikayla OLSON OR TYPE: Emergency DIAGNOSES: - Vertigo OUTSIDE - Procedure and treatment not carried out due to patient leaving prior to being seen by health care provider - Vertigo (Recurrent) INPATIENT VISIT TRACKING (12 MO.) No inpatient visits to display in this time frame [email or web address]
--- NOTE | 2020-05-31 20:09 | EKG ---
[facility] [address] [facility] [place], [place] [address] Signed Normal sinus rhythm Normal ECG When compared with ECG of 25-SEP-2019 16:17, No significant change was found Confirmed by TED AMAYA DO ([id number]) on 05/31/2020 8:09:08 PM Electronically Signed By: TED AMAYA DO 05/31/202008 PATIENT NAME: JESUS CRANE Electrocardiogram DATE OF : 76 PHYSICIAN: TED AMAYA DO REPORT #: [id number] REPORT IS CONFIDENTIAL AND NOT TO BE RELEASED WITHOUT AUTHORIZATION
== END 2020-05-31 15:06 | disposition home or self-care (01) ==
LOC: ED 12:44
DX: R07.89 Other chest pain (principal); R91.1 Solitary pulmonary nodule; Z87.891 Personal history of nicotine dependence
CPT/HCPCS: 80053; 83690; 84484; 85025; 85379; 93005; 93010; 99285-25; J7030

== ENCOUNTER 2020-08-24 12:03 | Emergency (ER) | payer OTHER ==
[~2020-08-24] VITALS: Ht 180.3 cm; Wt 61.2 kg
[2020-08-24] MEDS ORDERED: ATIVAN1 MG PO (14:18)
== END 2020-08-24 14:34 | disposition home or self-care (01) ==
LOC: ED 12:03
DX: F41.9 Anxiety disorder, unspecified (principal); Z87.891 Personal history of nicotine dependence
CPT/HCPCS: 94640; 99284

== ENCOUNTER 2020-09-08 14:49 | Emergency (ER) | payer OTHER ==
[~2020-09-08] VITALS: Ht 180.3 cm; Wt 61.2 kg
[~2020-09-08 14:49] MED LIST changes: +ATIVAN1 MG PO
--- OUTSIDE RECORDS SUMMARY | 2020-09-08 14:52 | XMS ---
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 Lucina VISIT COUNT (12 MO.) 1 Micky Lennon TOTAL 6 NOTE: Visits indicate total known visits. ED/UCC VISIT TRACKING (12 MO.) 09/08/2020 14:50 QUEENIE Dasilva OR TYPE: Emergency COMPLAINT: - HEAVY CHEST,NUMB ARMS,NAUSEA 08/24/2020 12:04 QUEENIE Dasilva OR TYPE: Emergency COMPLAINT: - DIFFICULTY BREATHING DIAGNOSES: - Anxiety disorder, unspecified - Personal history of nicotine dependence 05/31/2020 12:45 QUEENIE Dasilva OR TYPE: Emergency COMPLAINT: - CHEST PAIN, FAINT, WEAKNESS DIAGNOSES: - Dizziness and giddiness - Solitary pulmonary nodule - Chest pain, unspecified - Other chest pain - Personal history of nicotine dependence 03/24/2020 08:01 QUEENIE Dasilva OR TYPE: Emergency COMPLAINT: - FLANK/BACK PAIN DIAGNOSES: - 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 - Nicotine dependence, unspecified, uncomplicated - Unspecified abdominal pain - Solitary pulmonary nodule 09/25/2019 15:54 QUEENIE Dasilva OR TYPE: Emergency COMPLAINT: - FEVER, COUGH DIAGNOSES: - Dizziness and giddiness - Viral infection, unspecified - Nicotine dependence, unspecified, uncomplicated - Contact with and (suspected) exposure to other viral communicable diseases 09/25/2019 11:14 Micky Castrejonkarina CateJeffrey OLSON OR TYPE: Emergency DIAGNOSES: - Vertigo OUTSIDE - Procedure and treatment not carried out due to patient leaving prior to being seen by health care provider - Vertigo (Recurrent) INPATIENT VISIT TRACKING (12 MO.) No inpatient visits to display in this time frame [id number]
--- NOTE | 2020-09-08 18:34 | EKG ---
[facility] [address] [facility] [place] [address] Signed Normal sinus rhythm Possible Left atrial enlargement Septal infarct , age undetermined Abnormal ECG When compared with ECG of 31-MAY-2020 12:55, No significant change was found Confirmed by RONNA LOAIZA MD ([id number]) on 09/08/2020 6:34:06 PM Electronically Signed By: RONNA LOAIZA MD 09/08/20 1834 PATIENT NAME: JESUS CRANE Electrocardiogram DATE OF : 76 PHYSICIAN: RONNA LOAIZA MD REPORT #: [id number] REPORT IS CONFIDENTIAL AND NOT TO BE RELEASED WITHOUT AUTHORIZATION
== END 2020-09-08 20:23 | disposition home or self-care (01) ==
LOC: ED 14:49
DX: R07.89 Other chest pain (principal); Z87.891 Personal history of nicotine dependence
CPT/HCPCS: 71045; 80053; 84484; 85025; 93005; 93010; 99285-25

== ENCOUNTER 2021-01-24 07:45 | Day surgery (SDC) | payer OTHER ==
[~2021-01-24] VITALS: Ht 180.3 cm; Wt 66.0 kg
--- NOTE | 2021-01-24 09:22 | NUR ---
01/24/21 0922 Bernadette Quesada 0967 PT ARRIVED TO PACU ON 2L VIA NC. VSS. PT WAKES AND DENIES CONCERNS AND IS REORIENTED TO PACU. PT EASILY FALLS BACK TO SLEEP.
--- NOTE | 2021-01-24 09:53 | NUR ---
PT ARRIVES BACK TO DS RM 7 TO WAIT UNTIL MEDICAL TRANSPORT ARRIVES TO TAKE HIM HOME AROUND NOON. PT FULLY DC WITH RIGHT HAND IV REMOVED. PT PROVIDED PUDDING, CRACKERS AND HAS WATER FROM PACU. PT ENCOURAGED TO USE CALL LIGHT WITH ANY NEEDS.
--- NOTE | 2021-01-25 07:21 | OR ---
[facility] [address] [place], [place] [address] Signed DATE OF OPERATION: 01/24/2021 SURGEON: Cleo Red MD PREOPERATIVE DIAGNOSES: 1. Intermittent rectal bleeding. 2. Anal skin tag. POSTOPERATIVE DIAGNOSES: 1. 3 mm polyps x2 at 8 cm. 2. 4 mm polyp at 30 cm. 3. Moderate internal and external hemorrhoids. PROCEDURE: Colonoscopy with hot biopsy. ESTIMATED BLOOD LOSS: None. INDICATIONS: Jesus is a 40-year-old gentleman asked to see me for a colonoscopy. He has had intermittent rectal bleeding over the last year. Apparently on exam, there is a skin tag at the 3 o'clock position. He gives no family history of colon cancer or polyps. No family history of inflammatory bowel disease. Of course, he has never had a previous colonoscopy at his age. His has MS and she is unable to drive. Consequently, she is not with him today. In the office, I gave him a pamphlet on colonoscopy. We had discussed the nature of the test. He understands there is risk including, but not limited to gas bloating, crampy abdominal pain, bleeding, perforation requiring surgery, and missed diagnosis. He also understands the need for IV conscious sedation. He had expressed understanding and wished to proceed. PROCEDURE NOTE: Jesus was taken into our endoscopy suite and placed in the left lateral decubitus position. He was given a total of 6 mg of Versed and 150 mcg of fentanyl to cover the case. A digital rectal exam was performed and he does have moderate circumferential hemorrhoids. He had good sphincter tone. There were no masses. No evidence of any blood. The adult colonoscope was then introduced and advanced quite readily into the cecum itself without difficulty. His prep was quite excellent. We could easily see the appendiceal orifice and the ileocecal valve. The scope was then slowly withdrawn. The above-mentioned polyps were easily removed with the help of hot biopsy forceps. There Electronically Signed By: CLEO RED MD 01/25/21 0721 PATIENT NAME: EJSUS CRANE OPERATIVE REPORT DATE OF : 76 REPORT #: [id number] PHYSICIAN: CLEO RED MD PCP: LINDA WALLACE MD REPORT IS CONFIDENTIAL AND NOT TO BE RELEASED WITHOUT AUTHORIZATION [facility] [address] [place] [address] Signed was no diverticulosis. There were no inflammatory changes. Upon retroflexion of scope in the rectum, we could see he has minimal to moderate internal hemorrhoid columns. He has one column that is dominant and I suspect that is the area that bleeds from time to time. After this, the gas was suctioned out and the colonoscope removed. Jesus tolerated the procedure quite well. RECOMMENDATIONS: Jesus is welcome to follow up in my office as needed. He can certainly return if he wants to talk more about the medical versus surgical treatment of hemorrhoids. We will also review the biopsies for his polyps. Cleo Red MD ALB/MODL /[id number] cc: MD Linda Mccabe MD Copies: CLEO RED MD, RUSSEL J MD ~ Electronically Signed By: CLEO RED MD 01/25/21 0721 PATIENT NAME: JESUS CRANE OPERATIVE REPORT DATE OF : 76 REPORT #: [id number] PHYSICIAN: CLEO RED MD PCP: LINDA WALLACE MD REPORT IS CONFIDENTIAL AND NOT TO BE RELEASED WITHOUT AUTHORIZATION
--- NOTE | 2021-01-26 08:39 | PATH ---
[facility] [address] [facility] [place] [place] [address] Signed SPECIMEN(S): A RECTAL POLYP AT 8 CM SPECIMEN(S): B COLON POLYP AT 30 CM SPECIMEN SOURCE: A. RECTAL POLYP AT 8 CM B. COLON POLYP AT 30 CM CLINICAL HISTORY: Colonoscopy. Rectal bleeding, anal skin tags. Post: External hemorrhoids, colon/rectal polyps. MICROSCOPIC DESCRIPTION: Histologic sections of all submitted blocks are examined by light microscopy. These findings, together with the gross examination, support the pathologic diagnosis. FINAL PATHOLOGIC DIAGNOSIS: A. Rectum, 8 cm, polypectomy: - Colonic mucosa with no significant pathologic changes. B. Colon, 30 cm, polypectomy: - Hyperplastic polyp. BRP:cml:C2NR GROSS DESCRIPTION: Two specimens are received in two containers labeled with "GW." A. The specimen, labeled "GW, 1," and designated on the requisition "8 cm rectum polypectomy," is received in formalin and consists of two fragments of pink-kaminski tissue (0.2-0.3 cm in greatest dimension). The specimen is submitted entirely in cassette (A1). B. The specimen, labeled "GW, 2," and designated on the requisition "30 cm colon polypectomy," is received in formalin and consists of one fragment of pink-kaminski tissue (0.3 cm in greatest dimension). The specimen is submitted entirely in cassette (B1). AC (under the direct supervision of a pathologist) The Gross Description was prepared using a voice recognition system. The report was reviewed for accuracy; however, sound-alike word errors, addition and/or deletions may occur. If there is any question about this report, please contact Client Services. PERFORMING LABORATORY: The technical component was performed by [facility], [address] [place] [address] (Forest Fire Prevention Specialist: Narcisa Victoria MD; CLIA# [id number]). PATIENT NAME: JESUS CRANE PATHOLOGY DATE OF : 76 REPORT #: [id number] PHYSICIAN: [facility] PCP: LINDA WALLACE MD REPORT IS CONFIDENTIAL AND NOT TO BE RELEASED WITHOUT AUTHORIZATION [facility] [address] [place], [place] [address] Signed [facility] [address] [place] [address] (CLIA# [id number]). Diagnostician: Franklyn Sutton MD Pathologist Electronically Signed 01/26/2021 Copies: ~ PATIENT NAME: JESUS CRANE PATHOLOGY DATE OF : 76 REPORT #: [id number] PHYSICIAN: NISHIYTE PATHOLOGY PCP: LINDA WALLACE MD REPORT IS CONFIDENTIAL AND NOT TO BE RELEASED WITHOUT AUTHORIZATION
== END 2021-01-24 10:00 | disposition home or self-care (01) ==
LOC: OPS 07:45 → DS 09:00 → OPS 10:00
PROVIDERS: ATTEND Colon & Rectal Surgery
PROC: 0DBE8ZZ Excision of Large Intestine, Via Natural or Artificial Opening Endoscopic (ICD-10-PCS; principal; 2021-01-24 09:00)
DX: K62.5 Hemorrhage of anus and rectum (principal); K63.5 Polyp of colon; K64.4 Residual hemorrhoidal skin tags; K64.8 Other hemorrhoids; J43.9 Emphysema, unspecified; Z87.891 Personal history of nicotine dependence
CPT/HCPCS: 99153; G0500; J2250; J3010; J7121

== ENCOUNTER 2024-07-06 10:05 | Emergency (ER) | payer OTHER ==
[~2024-07-06] VITALS: Ht 177.8 cm; Wt 68.0 kg
[~2024-07-06 10:05] MED LIST changes: +MELATONIN1 MG PO; +TRAZODONE HCL50 MG PO; +VENTOLIN HFA18 GM INH
[2024-07-06] MEDS ORDERED: VITAMIN B12500 MCG (10:38)
[2024-07-06] MEDS ORDERED: CANDICIDAL CAP1 EACH (10:39)
[2024-07-06 11:04] LABS: BASOPHILS 0.9 % (0-2); HEMATOCRIT 46.2 % (35.0-50.0); HEMOGLOBIN 16.2 g/dL (12.0-18.0); LYMPHOCYTES 33.5 % (24-44); MCH 30.7 (27-36); MCV 87.7 fl (81-99); MONOCYTES 6.3 % (0-12); NEUTROPHILS 58.3 % (39-80); PLATELET COUNT 300 K/uL (140-440); RBC 5.27 M/ul (4.3-5.7); RDW 13.5 (10.5-15.0)
[2024-07-06 11:14] LABS: ALBUMIN 3.8 g/dL (3.4-5.0); ALBUMIN/GLOBULIN RATIO 1.09 (1.1-2.4); ANION GAP 11.1 (7-21); BILIRUBIN, TOTAL 0.5 mg/dL (0.2-1.0); BUN/CREATININE RATIO 9.57 (6.0-28.6); CALCIUM 9.4 mg/dL (8.5-10.1); CREATININE, SERUM 0.94 mg/dL (0.70-1.30); POTASSIUM 4.1 mmol/L (3.5-5.1); PROTEIN, TOTAL 7.3 g/dL (6.4-8.2)
[2024-07-06] MEDS ORDERED: OMEPRAZOLE20 MG PO (12:29)
[2024-07-06] MEDS ORDERED: PROMETHAZINE HC25 M1 PO (12:29)
[2024-07-06 12:37] VITALS: BP 108/69
== END 2024-07-06 12:38 | disposition home or self-care (01) ==
LOC: ED 10:05
PROVIDERS: Emergency Medicine
DX: R10.9 Unspecified abdominal pain (principal); J44.9 Chronic obstructive pulmonary disease, unspecified; Z87.891 Personal history of nicotine dependence; Z79.899 Other long term (current) drug therapy
CPT/HCPCS: 36415; 80053; 83690; 85025; 99284